=== PATIENT | female | born 1940 | race American Indian/Alaskan Native ===

== ENCOUNTER 2019-03-27 18:26 | Observation (INO) | payer MEDICARE ==
[2019-03-27] MEDS ORDERED: NACL 0.9% 1000 ML 1,000 ML IV ONE ×2 (19:02→23:18)
[2019-03-27 19:27] LABS: Basophils % (Auto) 0.5 % (0.0-1.8); Eosinophils % (Auto) 0.1 % (0.0-4.3); Hematocrit 34.3 % (30.3-42.9); Hemoglobin 11.3 gm/dl (10.1-14.3); Lymphocytes # (Auto) 0.4 K/mm3 (1.2-5.4); Mean Corpuscular HGB Conc 33 % (30-34); Mean Corpuscular Volume 86 fl (79-97); Monocytes # (Auto) 0.3 K/mm3 (0.0-0.8); Monocytes % (Auto) 4.4 % (0.0-7.3); Platelet Count 221 K/mm3 (140-440); Red Blood Count 3.98 M/mm3 (3.65-5.03); Red Cell Distribution Width 15.1 % (13.2-15.2)
[2019-03-27 20:35] LABS: BUN/Creatinine Ratio 22; Blood Urea Nitrogen 13 mg/dL (7-17); Hemolysis Index 5
[2019-03-27 20:42] LABS: Bilirubin,Urine NEG (Negative); Blood,Urine NEG (Negative); Color,Urine Yellow (Yellow); Mucus,Urine FEW /HPF; Protein,Urine <15 mg/dL mg/dL (Negative); Urobilinogen,Urine < 2.0 mg/dL (<2.0); WBC,Urine < 1.0 /HPF (0.0-6.0)
--- NOTE | 2019-03-27 23:18 | Emergency Department Report ---
ED General Adult HPI - General Chief complaint: Altered Mental Status Stated complaint: AMS Time Seen by Provider: 03/27/19 18:58 Source: EMS Mode of arrival: Stretcher Limitations: Altered Mental Status - History of Present Illness Initial comments: Patient is a 79-year-old female with past medical history dementia who turkey on her electric oven on today presumably with the door open and he heated up her apartment 2 in intensity. Patient was in her apartment for hours. Patient lives alone and cystic went to check on her this afternoon and discovered her unconscious in the department. Patient's initially was very difficult to arouse. Paramedics were able to arouse her and transported her to the emergency department. On arrival the patient is at her baseline which is poorly verbal and confused. Patient's sister states that she should not be staying at the apartment by herself anymore. Patient's sister states that she was not sweating at the time when she was found Severity scale (0 -10): 0 - Related Data Allergies Allergy/AdvReac Type Severity Reaction Status Date / Time No Known Allergies Allergy Unverified 03/27/19 18:50 ED Review of Systems ROS: Stated complaint: AMS Other details as noted in HPI Comment: All other systems reviewed and negative ED Past Medical Hx - Past Medical History Additional medical history: dementia - Social History Smoking Status: Never Smoker Substance Use Type: None ED Physical Exam - General Limitations: Altered Mental Status General appearance: alert, in no apparent distress - Head Head exam: Present: atraumatic, normocephalic - Eye Eye exam: Present: normal appearance, PERRL, EOMI - ENT ENT exam: Present: mucous membranes moist - Neck Neck exam: Present: normal inspection - Respiratory Respiratory exam: Present: normal lung sounds bilaterally. Absent: respiratory distress, wheezes, rales, rhonchi - Cardiovascular Cardiovascular Exam: Present: regular rate, normal rhythm. Absent: systolic murmur, diastolic murmur, rubs, gallop - GI/Abdominal GI/Abdominal exam: Present: soft, normal bowel sounds. Absent: distended, tenderness, guarding, rebound - Extremities Exam Extremities exam: Present: normal inspection - Back Exam Back exam: Present: normal inspection - Neurological Exam Neurological exam: Present: alert, altered. Absent: motor sensory deficit - Psychiatric Psychiatric exam: Present: normal affect, normal mood - Skin Skin exam: Present: warm, dry, intact, normal color. Absent: rash ED Course Vital Signs 03/27/19 03/27/19 03/27/19 18:41 18:57 19:16 Temperature 101.4 F H Pulse Rate 104 H 96 H Respiratory 18 18 16 Rate Blood Pressure 139/65 Blood Pressure 175/71 [Left] O2 Sat by Pulse 98 99 100 Oximetry 03/27/19 03/27/19 03/27/19 19:30 19:45 20:00 Temperature 98.6 F Pulse Rate 93 H 87 81 Respiratory 17 21 18 Rate Blood Pressure 148/59 148/61 145/59 Blood Pressure 149/64 [Left] O2 Sat by Pulse 97 98 98 Oximetry 03/27/19 03/27/19 03/27/19 20:15 20:30 20:45 Temperature Pulse Rate 82 84 78 Respiratory 17 19 11 L Rate Blood Pressure 150/61 153/70 144/64 Blood Pressure [Left] O2 Sat by Pulse 100 100 100 Oximetry 03/27/19 03/27/19 03/27/19 21:00 21:15 21:30 Temperature Pulse Rate 78 74 76 Respiratory 17 16 14 Rate Blood Pressure 143/64 141/62 154/66 Blood Pressure [Left] O2 Sat by Pulse 99 99 99 Oximetry 03/27/19 03/27/19 03/27/19 21:45 22:00 22:15 Temperature Pulse Rate 70 73 71 Respiratory 16 16 15 Rate Blood Pressure 149/63 151/69 158/73 Blood Pressure [Left] O2 Sat by Pulse 97 98 99 Oximetry ED Medical Decision Making - Lab Data Result diagrams: 03/27/19 19:12 03/27/19 19:12 Lab Results 03/27/19 03/27/19 03/27/19 Range/Units 19:12 19:12 Unknown WBC 7.5 (4.5-11.0) K/mm3 RBC 3.98 (3.65-5.03) M/mm3 Hgb 11.3 (10.1-14.3) gm/dl Hct 34.3 (30.3-42.9) % MCV 86 (79-97) fl MCH 28 (28-32) pg MCHC 33 (30-34) % RDW 15.1 (13.2-15.2) % Plt Count 221 (140-440) K/mm3 Lymph % (Auto) 5.0 L (13.4-35.0) % [place] % (Auto) 4.4 (0.0-7.3) % Eos % (Auto) 0.1 (0.0-4.3) % Baso % (Auto) 0.5 (0.0-1.8) % Lymph # 0.4 L (1.2-5.4) K/mm3 [place] # 0.3 (0.0-0.8) K/mm3 Eos # 0.0 (0.0-0.4) K/mm3 Baso # 0.0 (0.0-0.1) K/mm3 Seg Neutrophils % 90.0 H (40.0-70.0) % Seg Neutrophils # 6.8 (1.8-7.7) K/mm3 Sodium 142 (137-145) mmol/L Potassium 3.2 L (3.6-5.0) mmol/L Chloride 105.6 (98-107) mmol/L Carbon Dioxide 24 (22-30) mmol/L Anion Gap 16 mmol/L BUN 13 (7-17) mg/dL Creatinine 0.6 L (0.7-1.2) mg/dL Estimated GFR > 60 ml/min BUN/Creatinine Ratio 22 % Glucose 125 H (65-100) mg/dL Calcium 8.0 L (8.4-10.2) mg/dL Total Creatine Kinase 127 (30-135) units/L Urine Color Yellow (Yellow) Urine Turbidity Clear (Clear) Urine pH 6.0 (5.0-7.0) Ur Specific [place] 1.012 (1.003-1.030) Urine Protein <15 mg/dl (Negative) mg/dL Urine Glucose (UA) Neg (Negative) mg/dL Urine Ketones Neg (Negative) mg/dL Urine Blood Neg (Negative) Urine Nitrite Neg (Negative) Urine Bilirubin Neg (Negative) Urine Urobilinogen < 2.0 (<2.0) mg/dL Ur Leukocyte Esterase Neg (Negative) Urine WBC (Auto) < 1.0 (0.0-6.0) /HPF Urine RBC (Auto) 2.0 (0.0-6.0) /HPF U Epithel Cells (Auto) 2.0 (0-13.0) /HPF Urine Mucus Few /HPF - Medical Decision Making Patient presumed to have heat stroke. Also patient may have had some worsening of her dementia which led to her staying in the apartment while he was heating up. Patient's laboratory studies are relatively within normal limits however to feel as though it's unsafe that the patient be sent back home. Patient will be admitted to receive further IV fluids and monitor her mental status. Critical care attestation.: If time is entered above; I have spent that time in minutes in the direct care of this critically ill patient, excluding procedure time. ED Disposition Clinical Impression: Heat stroke, Acute encephalopathy Disposition: DC-09 OP ADMIT IP TO THIS HOSP Is pt being admited?: Yes Does the pt Need Aspirin: No Condition: Stable Time of Disposition: 23:20
[2019-03-27] MEDS ORDERED: NACL 0.9% 1000 ML 1,000 ML IV SCH (23:45)
--- NOTE | 2019-03-28 00:15 | Cat Scan Report ---
CT HEAD WITHOUT CONTRAST INDICATION / CLINICAL INFORMATION: altered mental status. TECHNIQUE: All CT scans at this location are performed using CT dose reduction for ALARA by means of automated e xposure control. COMPARISON: None available. FINDINGS: HEMORRHAGE: None. EXTRA-AXIAL SPACES: Normal in size and morphology for the patient's age. VENTRICULAR SYSTEM: Normal in size and morphology for the patient's age. CEREBRAL PARENCHYMA: Mild diffuse white matter hypodensities likely related to microangiopathy. MIDLINE SHIFT OR HERNIATION: None. CEREBELLUM / BRAINSTEM: No significant abnormality. ORBITS: Normal as visualized. SOFT TISSUES of HEAD: No significant abnormality. CALVARIUM: No significant abnormality. PARANASAL SINUSES / MASTOID AIR CELLS: Normal as visualized. ADDITIONAL FINDINGS: None. IMPRESSION: 1. No acute intracranial abnormality. 2. Chronic and age-related findings. Signer Name: Leigh Giron MD Signed: 03/28/2019 12:11 AM Workstation Name: [id number]
--- NOTE | 2019-03-28 01:56 | History and Physical Report ---
History of Present Illness Date of examination: 03/28/19 Date of admission: 03/27/19 23:26 Chief complaint: AMS History of present illness: Patient is a 79-year-old female with past medical history of dementia who presented to the ED via EMS on account of altered mental status. Of note, the patient was unable to provide history due to baseline dementia. Per chart, it was reported that the pt was cooking turkey on her electric oven presumably with the door open, which heated up her apartment. She lives alone and when her sister went to check on her, she discovered her unconscious in the apartment. The patient was very difficult to arouse. However, paramedics were able to arouse her and transported her to the emergency department. On arrival to the ED, the patient was at her baseline mental status. The patient's sister voiced concern about the pt's ability to live alone Past History Past Medical History: other (dementia) Past Surgical History: Other (unable to obtain due to baseline dementia) Social history: no significant social history (per chart) Family history: other (unable to obtain due to baseline dementia) Medications and Allergies Allergies Allergy/AdvReac Type Severity Reaction Status Date / Time No Known Allergies Allergy Verified 03/27/19 23:30 Active Meds: Active Medications Sodium Chloride (Nacl 0.9% 1000 Ml) 1,000 mls @ 100 mls/hr IV ONCE ONE Stop: 03/28/19 09:17 Last Admin: 03/27/19 23:45 Dose: 100 mls/hr Documented by: Sodium Chloride (Nacl 0.9% 1000 Ml) 1,000 mls @ 100 mls/hr IV DIRECT TYRON Review of Systems ROS unobtainable: due to mental status (due to baseline dementia) Exam - Constitutional Vitals: Temp Pulse Resp BP Pulse Ox 97.9 F 71 18 179/91 99 03/28/19 01:03 03/28/19 01:03 03/28/19 01:03 03/28/19 01:03 03/28/19 01:03 General appearance: Present: no acute distress - EENT Eyes: Present: PERRL, EOM intact ENT: hearing intact, clear oral mucosa - Neck Neck: Present: supple, normal ROM - Respiratory Respiratory effort: normal Respiratory: bilateral: CTA - Cardiovascular Rhythm: regular Heart Sounds: Present: S1 & S2. Absent: rub, click - Extremities Extremities: pulses symmetrical, No edema Peripheral Pulses: within normal limits - Abdominal General gastrointestinal: Present: soft, non-tender, non-distended, normal bowel sounds Female genitourinary: Present: deferred - Rectal Rectal Exam: deferred - Integumentary Integumentary: Present: clear, warm, dry - Musculoskeletal Musculoskeletal: generalized weakness - Psychiatric Psychiatric: cooperative - Neurologic Neurologic: moves all extremities Results - Labs CBC & Chem 7: 03/27/19 19:12 03/27/19 19:12 Labs: Laboratory Last Values WBC 7.5 K/mm3 (4.5-11.0) 03/27/19 19:12 RBC 3.98 M/mm3 (3.65-5.03) 03/27/19 19:12 Hgb 11.3 gm/dl (10.1-14.3) 03/27/19 19:12 Hct 34.3 % (30.3-42.9) 03/27/19 19:12 MCV 86 fl (79-97) 03/27/19 19:12 MCH 28 pg (28-32) 03/27/19 19:12 MCHC 33 % (30-34) 03/27/19 19:12 RDW 15.1 % (13.2-15.2) 03/27/19 19:12 Plt Count 221 K/mm3 (140-440) 03/27/19 19:12 Lymph % (Auto) 5.0 % (13.4-35.0) L 03/27/19 19:12 [place] % (Auto) 4.4 % (0.0-7.3) 03/27/19 19:12 Eos % (Auto) 0.1 % (0.0-4.3) 03/27/19 19:12 Baso % (Auto) 0.5 % (0.0-1.8) 03/27/19 19:12 Lymph # 0.4 K/mm3 (1.2-5.4) L 03/27/19 19:12 [place] # 0.3 K/mm3 (0.0-0.8) 03/27/19 19:12 Eos # 0.0 K/mm3 (0.0-0.4) 03/27/19 19:12 Baso # 0.0 K/mm3 (0.0-0.1) 03/27/19 19:12 Seg Neutrophils % 90.0 % (40.0-70.0) H 03/27/19 19:12 Seg Neutrophils # 6.8 K/mm3 (1.8-7.7) 03/27/19 19:12 Sodium 142 mmol/L (137-145) 03/27/19 19:12 Potassium 3.2 mmol/L (3.6-5.0) L 03/27/19 19:12 Chloride 105.6 mmol/L (98-107) 03/27/19 19:12 Carbon Dioxide 24 mmol/L (22-30) 03/27/19 19:12 Anion Gap 16 mmol/L 03/27/19 19:12 BUN 13 mg/dL (7-17) 03/27/19 19:12 Creatinine 0.6 mg/dL (0.7-1.2) L 03/27/19 19:12 Estimated GFR > 60 ml/min 03/27/19 19:12 BUN/Creatinine Ratio 22 % 03/27/19 19:12 Glucose 125 mg/dL (65-100) H 03/27/19 19:12 Calcium 8.0 mg/dL (8.4-10.2) L 03/27/19 19:12 Total Creatine Kinase 127 units/L (30-135) 03/27/19 19:12 Urine Color Yellow (Yellow) 03/27/19 Unknown Urine Turbidity Clear (Clear) 03/27/19 Unknown Urine pH 6.0 (5.0-7.0) 03/27/19 Unknown Ur Specific [place] 1.012 (1.003-1.030) 03/27/19 Unknown Urine Protein <15 mg/dl mg/dL (Negative) 03/27/19 Unknown Urine Glucose (UA) Neg mg/dL (Negative) 03/27/19 Unknown Urine Ketones Neg mg/dL (Negative) 03/27/19 Unknown Urine Blood Neg (Negative) 03/27/19 Unknown Urine Nitrite Neg (Negative) 03/27/19 Unknown Urine Bilirubin Neg (Negative) 03/27/19 Unknown Urine Urobilinogen < 2.0 mg/dL (<2.0) 03/27/19 Unknown Ur Leukocyte Esterase Neg (Negative) 03/27/19 Unknown Urine WBC (Auto) < 1.0 /HPF (0.0-6.0) 03/27/19 Unknown Urine RBC (Auto) 2.0 /HPF (0.0-6.0) 03/27/19 Unknown U Epithel Cells (Auto) 2.0 /HPF (0-13.0) 03/27/19 Unknown Urine Mucus Few /HPF 03/27/19 Unknown Assessment and Plan Assessment and plan: Syncope and collapse -Likely due to hyperthermia -Head CT scan neg for acute findings -Stable SIRS evidenced by T>100.9 and HR>90 -Likely due to noninfectious cause (hyperthermia) -Urinalysis negative -Improved s/p IVF boluses in the ED, will monitor Hypokalemia -On repletion, will monitor level -will check Mg level Elevated BP -? history of HTN -On PRN hydralazine Generalized weakness -PT/OT consulted Dementia without behavioral disturbances -Continue supportive care DVT prophylaxis with heparin Disposition: Patient will be admitted to observation status. manager medical writing consulted for possible placement.
[2019-03-28] MEDS: K-DUR PO SCH ×2 (03:57→10:01)
[2019-03-28] MEDS: APRESOLINE IV PRN ×2 (03:57→18:13)
--- NOTE | 2019-03-28 08:14 | Progress Note ---
Assessment and Plan Assessment and plan: Patient is a 79-year-old female with past medical history of dementia who presented to the ED via EMS on account of altered mental status. Of note, the patient was unable to provide history due to baseline dementia. Per chart, it was reported that the pt was cooking turkey on her electric oven presumably with the door open, which heated up her apartment. She lives alone and when her sister went to check on her, she discovered her unconscious in the apartment. The patient was very difficult to arouse. However, paramedics were able to arouse her and transported her to the emergency department. On arrival to the ED, the patient was at her baseline mental status. The patient's sister voiced concern about the pt's ability to live alone Syncope and collapse -Likely due to hyperthermia -Head CT scan neg for acute findings -Stable -Evaluate for possible elevated carboxyhemoglobin. SIRS evidenced by T>100.9 and HR>90 -Likely due to noninfectious cause (hyperthermia) -Urinalysis negative -Improved s/p IVF boluses in the ED, will monitor Hypokalemia -On repletion, will monitor level -will check Mg level Hypetension urgency -pt with persistently elevated BP -On PRN hydralazine -Obtain home medication -Start on Clonidin Patch as patient is refusing PO intake Generalized weakness -PT/OT consulted Dementia without behavioral disturbances -Continue supportive care DVT prophylaxis with heparin Disposition: Patient will be admitted to observation status. manager of patient consulted for possible placement. History Interval history: Patient seen and examined, resting comfortably although very confused at this time, Refusing meds Hospitalist Physical - Physical exam Narrative exam: General appearance: Present: no acute distress - EENT Eyes: Present: PERRL, EOM intact ENT: hearing intact, clear oral mucosa - Neck Neck: Present: supple, normal ROM - Respiratory Respiratory effort: normal Respiratory: bilateral: CTA - Cardiovascular Rhythm: regular Heart Sounds: Present: S1 & S2. Absent: rub, click - Extremities Extremities: pulses symmetrical, No edema Peripheral Pulses: within normal limits - Abdominal General gastrointestinal: Present: soft, non-tender, non-distended, normal bowel sounds Female genitourinary: Present: deferred - Rectal Rectal Exam: deferred - Integumentary Integumentary: Present: clear, warm, dry - Musculoskeletal Musculoskeletal: generalized weakness - Psychiatric Psychiatric: cooperative - Neurologic Neurologic: moves all extremities - Constitutional Vitals: Temp Pulse Resp BP Pulse Ox 97.9 F 71 18 179/91 99 03/28/19 01:03 03/28/19 03:57 03/28/19 01:03 03/28/19 03:57 03/28/19 01:03 General appearance: Present: no acute distress Results - Labs CBC & Chem 7: 03/27/19 19:12 03/27/19 19:12 Labs: Laboratory Last Values WBC 7.5 K/mm3 (4.5-11.0) 03/27/19 19:12 RBC 3.98 M/mm3 (3.65-5.03) 03/27/19 19:12 Hgb 11.3 gm/dl (10.1-14.3) 03/27/19 19:12 Hct 34.3 % (30.3-42.9) 03/27/19 19:12 MCV 86 fl (79-97) 03/27/19 19:12 MCH 28 pg (28-32) 03/27/19 19:12 MCHC 33 % (30-34) 03/27/19 19:12 RDW 15.1 % (13.2-15.2) 03/27/19 19:12 Plt Count 221 K/mm3 (140-440) 03/27/19 19:12 Lymph % (Auto) 5.0 % (13.4-35.0) L 03/27/19 19:12 [place] % (Auto) 4.4 % (0.0-7.3) 03/27/19 19:12 Eos % (Auto) 0.1 % (0.0-4.3) 03/27/19 19:12 Baso % (Auto) 0.5 % (0.0-1.8) 03/27/19 19:12 Lymph # 0.4 K/mm3 (1.2-5.4) L 03/27/19 19:12 [place] # 0.3 K/mm3 (0.0-0.8) 03/27/19 19:12 Eos # 0.0 K/mm3 (0.0-0.4) 03/27/19 19:12 Baso # 0.0 K/mm3 (0.0-0.1) 03/27/19 19:12 Seg Neutrophils % 90.0 % (40.0-70.0) H 03/27/19 19:12 Seg Neutrophils # 6.8 K/mm3 (1.8-7.7) 03/27/19 19:12 Sodium 142 mmol/L (137-145) 03/27/19 19:12 Potassium 3.2 mmol/L (3.6-5.0) L 03/27/19 19:12 Chloride 105.6 mmol/L (98-107) 03/27/19 19:12 Carbon Dioxide 24 mmol/L (22-30) 03/27/19 19:12 Anion Gap 16 mmol/L 03/27/19 19:12 BUN 13 mg/dL (7-17) 03/27/19 19:12 Creatinine 0.6 mg/dL (0.7-1.2) L 03/27/19 19:12 Estimated GFR > 60 ml/min 03/27/19 19:12 BUN/Creatinine Ratio 22 % 03/27/19 19:12 Glucose 125 mg/dL (65-100) H 03/27/19 19:12 Calcium 8.0 mg/dL (8.4-10.2) L 03/27/19 19:12 Magnesium 1.80 mg/dL (1.7-2.3) 03/28/19 03:12 Total Creatine Kinase 127 units/L (30-135) 03/27/19 19:12 Urine Color Yellow (Yellow) 03/27/19 Unknown Urine Turbidity Clear (Clear) 03/27/19 Unknown Urine pH 6.0 (5.0-7.0) 03/27/19 Unknown Ur Specific [place] 1.012 (1.003-1.030) 03/27/19 Unknown Urine Protein <15 mg/dl mg/dL (Negative) 03/27/19 Unknown Urine Glucose (UA) Neg mg/dL (Negative) 03/27/19 Unknown Urine Ketones Neg mg/dL (Negative) 03/27/19 Unknown Urine Blood Neg (Negative) 03/27/19 Unknown Urine Nitrite Neg (Negative) 03/27/19 Unknown Urine Bilirubin Neg (Negative) 03/27/19 Unknown Urine Urobilinogen < 2.0 mg/dL (<2.0) 03/27/19 Unknown Ur Leukocyte Esterase Neg (Negative) 03/27/19 Unknown Urine WBC (Auto) < 1.0 /HPF (0.0-6.0) 03/27/19 Unknown Urine RBC (Auto) 2.0 /HPF (0.0-6.0) 03/27/19 Unknown U Epithel Cells (Auto) 2.0 /HPF (0-13.0) 03/27/19 Unknown Urine Mucus Few /HPF 03/27/19 Unknown Active Medications - Current Medications Current Medications: Generic Name Dose Route Start Last Admin Trade Name Freq PRN Reason Stop Dose Admin Heparin Sodium (Porcine) 5,000 unit 03/28/19 10:00 Heparin SUB-Q Q12HR TYRON Hydralazine HCl 10 mg 03/28/19 02:06 03/28/19 03:57 Apresoline IV 10 mg Q4HR PRN Administration Blood Pressure Sodium Chloride 1,000 mls @ 100 mls/hr 03/27/19 23:18 03/27/19 23:45 Nacl 0.9% 1000 Ml IV 03/28/19 09:17 100 mls/hr ONCE ONE Administration Sodium Chloride 1,000 mls @ 100 mls/hr 03/27/19 23:45 Nacl 0.9% 1000 Ml IV DIRECT TYRON Potassium Chloride 40 meq 03/28/19 02:02 03/28/19 03:57 K-Dur PO 03/28/19 10:01 40 meq BID TYRON Administration
[2019-03-28] MEDS: HEPARIN SUB-Q SCH ×2 (10:02→21:33)
[2019-03-28] MEDS ORDERED: CATAPRES-TTS PATCH TD SCH (14:00)
[2019-03-28] MEDS: ARICEPT PO SCH (14:12)
[2019-03-28] MEDS: COZAAR PO SCH (14:12)
[2019-03-28] MEDS ORDERED: XANAX PO PRN (22:43)
[2019-03-28] MEDS ORDERED: XANAX PO ONE (22:45)
[2019-03-29] MEDS ORDERED: ATIVAN IM ONE (00:04)
--- NOTE | 2019-03-29 00:05 | Event Note ---
Patient very disruptive, pulled out her IV several times, one wandering into other patient's room xanax ordered, she refused to take it Will give a dose of ativan
[2019-03-29] MEDS: COZAAR PO SCH (09:22)
[2019-03-29] MEDS: ARICEPT PO SCH (09:23)
[2019-03-29] MEDS: HEPARIN SUB-Q SCH (09:23)
[2019-03-29 10:34] LABS: BUN/Creatinine Ratio 20; Blood Urea Nitrogen 10 mg/dL (7-17); Calcium 9.4 mg/dL (8.4-10.2); Hemolysis Index 12
--- NOTE | 2019-03-29 11:57 | Discharge Summary ---
Providers - Providers Date of Admission: 03/27/19 23:26 Attending physician: CHRIS MAYNARD MD 03/28/19 02:18 Physical Therapy Evaluation and Treat [CONS] Routine Comment: Reason For Exam: generalized weakness 03/28/19 02:19 Consult to Case Management [CONS] Routine Services Needed at Discharge: Medical Insurance Clerk Notified:: ARCHIE Additional Physician Instructions: for possible placement Occupational Therapy Evaluate and Treat [CONS] Routine Comment: Reason For Exam: generalized weakness Primary care physician: LOT BOSS Hospitalization Reason for admission: syncope Condition: Stable Hospital course: Patient is a 79-year-old female with past medical history of dementia who presented to the ED via EMS on account of altered mental status. Of note, the patient was unable to provide history due to baseline dementia. Per chart, it was reported that the pt was cooking turkey on her electric oven presumably with the door open, which heated up her apartment. She lives alone and when her sister went to check on her, she discovered her unconscious in the apartment. The patient was very difficult to arouse. However, paramedics were able to arouse her and transported her to the emergency department. On arrival to the ED, the patient was at her baseline mental status. The patient's sister voiced concern about the pt's ability to live alone Syncope -Likely due to hyperthermia -Head CT scan neg for acute findings -Stable -Patient refused carboxyhemoglobin. SIRS evidenced by T>100.9 and HR>90 -Likely due to noninfectious cause (hyperthermia) -Urinalysis negative -Improved s/p IVF boluses in the ED, will monitor Hypokalemia -Replaced Hypetension urgency -STABLE Generalized weakness -PT/OT consulted Dementia without behavioral disturbances WITH SUNDOWNING. -Continue supportive care STABLE FOR DISCHARGE, FAMILY AWARE THAT PATIENT WILL NEED CARE AT HOME. Disposition: DC/[place]-06 HOME UNDER HOME [facility] Time spent for discharge: 35 MINS Core Measure Documentation - Palliative Care Palliative Care/ Comfort Measures: Not Applicable - Core Measures Any of the following diagnoses?: none Exam - Physical Exam Narrative exam: General appearance: Present: no acute distress - EENT Eyes: Present: PERRL, EOM intact ENT: hearing intact, clear oral mucosa - Neck Neck: Present: supple, normal ROM - Respiratory Respiratory effort: normal Respiratory: bilateral: CTA - Cardiovascular Rhythm: regular Heart Sounds: Present: S1 & S2. Absent: rub, click - Extremities Extremities: pulses symmetrical, No edema Peripheral Pulses: within normal limits - Abdominal General gastrointestinal: Present: soft, non-tender, non-distended, normal bowel sounds Female genitourinary: Present: deferred - Rectal Rectal Exam: deferred - Integumentary Integumentary: Present: clear, warm, dry - Musculoskeletal Musculoskeletal: generalized weakness - Psychiatric Psychiatric: cooperative - Neurologic Neurologic: moves all extremities - Constitutional Vitals: Temp Pulse Resp BP Pulse Ox 97.5 F L 94 H 20 150/63 98 03/29/19 07:28 03/29/19 09:22 03/29/19 07:28 03/29/19 09:22 03/29/19 02:54 Plan Activity: advance as tolerated, fall precautions Diet: low fat Special Instructions: record daily BP diary Follow up with: PRIMARY CARE, [Primary Care Provider] - 3-5 Days Prescriptions: cloNIDine-TTS PATCH [Catapres-Tts 0.2mg Patch] 0.2 mg TD Tu #7 patch
--- NOTE | 2019-03-29 11:58 | Progress Note ---
Assessment and Plan Assessment and plan: Patient is a 79-year-old female with past medical history of dementia who presented to the ED via EMS on account of altered mental status. Of note, the patient was unable to provide history due to baseline dementia. Per chart, it was reported that the pt was cooking turkey on her electric oven presumably with the door open, which heated up her apartment. She lives alone and when her sister went to check on her, she discovered her unconscious in the apartment. The patient was very difficult to arouse. However, paramedics were able to arouse her and transported her to the emergency department. On arrival to the ED, the patient was at her baseline mental status. The patient's sister voiced concern about the pt's ability to live alone Syncope -Likely due to hyperthermia -Head CT scan neg for acute findings -Stable -Patient refused carboxyhemoglobin. SIRS evidenced by T>100.9 and HR>90 -Likely due to noninfectious cause (hyperthermia) -Urinalysis negative -Improved s/p IVF boluses in the ED, will monitor Hypokalemia -Replaced Hypetension urgency -STABLE Generalized weakness -PT/OT consulted Dementia without behavioral disturbances WITH SUNDOWNING. -Continue supportive care STABLE FOR DISCHARGE, FAMILY AWARE THAT PATIENT WILL NEED CARE AT HOME. History Interval history: Patient seen and examined, resting comfortably confused intermittently but back to baseline. No family present Hospitalist Physical - Physical exam Narrative exam: General appearance: Present: no acute distress - EENT Eyes: Present: PERRL, EOM intact ENT: hearing intact, clear oral mucosa - Neck Neck: Present: supple, normal ROM - Respiratory Respiratory effort: normal Respiratory: bilateral: CTA - Cardiovascular Rhythm: regular Heart Sounds: Present: S1 & S2. Absent: rub, click - Extremities Extremities: pulses symmetrical, No edema Peripheral Pulses: within normal limits - Abdominal General gastrointestinal: Present: soft, non-tender, non-distended, normal bowel sounds Female genitourinary: Present: deferred - Rectal Rectal Exam: deferred - Integumentary Integumentary: Present: clear, warm, dry - Musculoskeletal Musculoskeletal: generalized weakness - Psychiatric Psychiatric: cooperative - Neurologic Neurologic: moves all extremities - Constitutional Vitals: Temp Pulse Resp BP Pulse Ox 97.5 F L 94 H 20 150/63 98 03/29/19 07:28 03/29/19 09:22 03/29/19 07:28 03/29/19 09:22 03/29/19 02:54 General appearance: Present: no acute distress Results - Labs CBC & Chem 7: 03/27/19 19:12 03/29/19 10:03 Labs: Laboratory Last Values WBC 7.5 K/mm3 (4.5-11.0) 03/27/19 19:12 RBC 3.98 M/mm3 (3.65-5.03) 03/27/19 19:12 Hgb 11.3 gm/dl (10.1-14.3) 03/27/19 19:12 Hct 34.3 % (30.3-42.9) 03/27/19 19:12 MCV 86 fl (79-97) 03/27/19 19:12 MCH 28 pg (28-32) 03/27/19 19:12 MCHC 33 % (30-34) 03/27/19 19:12 RDW 15.1 % (13.2-15.2) 03/27/19 19:12 Plt Count 221 K/mm3 (140-440) 03/27/19 19:12 Lymph % (Auto) 5.0 % (13.4-35.0) L 03/27/19 19:12 Butts % (Auto) 4.4 % (0.0-7.3) 03/27/19 19:12 Eos % (Auto) 0.1 % (0.0-4.3) 03/27/19 19:12 Baso % (Auto) 0.5 % (0.0-1.8) 03/27/19 19:12 Lymph # 0.4 K/mm3 (1.2-5.4) L 03/27/19 19:12 Butts # 0.3 K/mm3 (0.0-0.8) 03/27/19 19:12 Eos # 0.0 K/mm3 (0.0-0.4) 03/27/19 19:12 Baso # 0.0 K/mm3 (0.0-0.1) 03/27/19 19:12 Seg Neutrophils % 90.0 % (40.0-70.0) H 03/27/19 19:12 Seg Neutrophils # 6.8 K/mm3 (1.8-7.7) 09/30/19 19:12 Sodium 143 mmol/L (137-145) 03/29/19 10:03 Potassium 3.7 mmol/L (3.6-5.0) 03/29/19 10:03 Chloride 101.9 mmol/L (98-107) 03/29/19 10:03 Carbon Dioxide 27 mmol/L (22-30) 03/29/19 10:03 Anion Gap 18 mmol/L 03/29/19 10:03 BUN 10 mg/dL (7-17) 03/29/19 10:03 Creatinine 0.5 mg/dL (0.7-1.2) L 03/29/19 10:03 Estimated GFR > 60 ml/min 03/29/19 10:03 BUN/Creatinine Ratio 20 % 03/29/19 10:03 Glucose 57 mg/dL (65-100) L 03/29/19 10:03 Calcium 9.4 mg/dL (8.4-10.2) D 03/29/19 10:03 Magnesium 1.80 mg/dL (1.7-2.3) 03/28/19 03:12 Total Creatine Kinase 127 units/L (30-135) 03/27/19 19:12 Urine Color Yellow (Yellow) 03/27/19 Unknown Urine Turbidity Clear (Clear) 03/27/19 Unknown Urine pH 6.0 (5.0-7.0) 03/27/19 Unknown Ur Specific Rector 1.012 (1.003-1.030) 03/27/19 Unknown Urine Protein <15 mg/dl mg/dL (Negative) 03/27/19 Unknown Urine Glucose (UA) Neg mg/dL (Negative) 03/27/19 Unknown Urine Ketones Neg mg/dL (Negative) 03/27/19 Unknown Urine Blood Neg (Negative) 03/27/19 Unknown Urine Nitrite Neg (Negative) 03/27/19 Unknown Urine Bilirubin Neg (Negative) 03/27/19 Unknown Urine Urobilinogen < 2.0 mg/dL (<2.0) 03/27/19 Unknown Ur Leukocyte Esterase Neg (Negative) 03/27/19 Unknown Urine WBC (Auto) < 1.0 /HPF (0.0-6.0) 03/27/19 Unknown Urine RBC (Auto) 2.0 /HPF (0.0-6.0) 03/27/19 Unknown U Epithel Cells (Auto) 2.0 /HPF (0-13.0) 03/27/19 Unknown Urine Mucus Few /HPF 03/27/19 Unknown Active Medications - Current Medications Current Medications: Generic Name Dose Route Start Last Admin Trade Name Freq PRN Reason Stop Dose Admin Clonidine HCl 0.2 mg 03/28/19 14:00 03/28/19 14:08 Catapres-Tts Patch TD 0.2 mg Tu TYRON Administration Donepezil HCl 5 mg 03/28/19 14:00 03/29/19 09:23 Aricept PO 5 mg DAILY TYRON Administration Heparin Sodium (Porcine) 5,000 unit 03/28/19 10:00 03/29/19 09:23 Heparin SUB-Q 5,000 unit Q12HR TYRON Administration Hydralazine HCl 10 mg 03/28/19 02:06 03/28/19 18:13 Apresoline IV 10 mg Q4HR PRN Administration Blood Pressure Sodium Chloride 1,000 mls @ 100 mls/hr 03/27/19 23:45 Nacl 0.9% 1000 Ml IV DIRECT TYRON Losartan Potassium 25 mg 03/28/19 14:00 03/29/19 09:22 Cozaar PO 25 mg QDAY TYRON Administration Nutrition/Malnutrition Assess - Dietary Evaluation Nutrition/Malnutrition Findings: Nutrition Notes Start: 03/28/19 11:17 Freq: Status: Active Protocol: Document 03/28/19 11:17 RS (Rec: 03/28/19 12:04 RS [id number]) Co-Sign 03/28/19 11:17 NHALL Nutrition Notes Need for Assessment generated from: jacquard fixer,MST Initial or Follow up Assessment Current Diagnosis Hypertension Other Pertinent Diagnosis Dementia, Hypoalkemia, SIRS, hyperthermia Current Diet Renal Diet Labs/Tests K: 3.2 Cr: 0.6 Pertinent Medications reviewed Height 5 ft 1 in Weight 45.359 kg [place] Body Weight (kg) 47.72 BMI 18.8 Intake Prior to Admission Poor Weight change and time frame Weight recorded by [facility] Weight Status Underweight Subjective/Other Information Pt consulted for MST and skin risk assesment (Olu score of 18). Pt ambulatory but exhibits signs of AMS so accurate intake PROJECT SURVEYOR was not able to be recorded. Noted temporal wasting. Nurse reports pt not eating any of her breakfast. Pt offered supplement and denied, but nurse requested ONS. Percent of energy/protein needs met: 0%/0% Burn Absent Trauma Absent Food Allergy No Current % PO Negligible Minimum of two criteria Yes Body Fat Depletion Moderate depletion (severe) Muscle Mass Moderate Depletion (severe) Protein-Calorie Malnutrition Severe #1 Nutrition Diagnosis Malnutrition Etiology dementia As Evidenced by Signs and Symptoms temporal wasting, subcutaneous fat loss, poor appetite, and consuming 0% of breakfast Is patient on ventilator? No Is Patient Ambulatory and/or Out of Bed Yes REE-([facility]-ambulatory/OOB) [ 1132.261 NUTR.[id number]] Kcal/Kg value to use for calculation 32 Approximate Energy Requirements Using 1451 kcal/Kg Calculation Used for Recommendations Kcal/kg Additional Notes Protein needs (1.2-1.5g/day): 55-68g/day Fluid needs: 1mL/kcal Nutrition Intervention Change Diet Order: Continue diet Add Supplement/Snack (indicate name/kcal Ensure Enlive Vanilla BID /protein ) Provides kCal: 700 Provides Protein (gm) 40 Goal #1 Pt will consume 75% of kcal/ protein needs via PO/ONS intake Goal #2 Wt maintenance and/or gain Anticipated Discharge Needs: Continue ONS 1-2 times daily Follow-Up By: 03/30/19 Additional Comments F/U for PO intake and ONS tolerance
[2019-03-29 15:09] VITALS: BP 173/76
== END 2019-03-29 15:15 | disposition home health service (06) ==
LOC: ED 18:26 → 2B-ACE 23:26
PROVIDERS: ADMIT Internal Medicine; ATTEND Internal Medicine
DX: R55 Syncope and collapse (principal); R65.10 Systemic inflammatory response syndrome (SIRS) of non-infectious origin without acute organ dysfunction; E87.6 Hypokalemia; I10 Essential (primary) hypertension; G93.40 Encephalopathy, unspecified; R53.1 Weakness; F03.90 Unspecified dementia, unspecified severity, without behavioral disturbance, psychotic disturbance, mood disturbance, and anxiety
CPT/HCPCS: 36415; 70450; 80048; 81001; 82550; 83735; 85025; 96361; 96372; 96374; 96376; 97162; 99284; G0378; J0360; J1644; J2060; J7030

== ENCOUNTER 2019-05-18 16:50 | Inpatient (IN) | payer MEDICARE ==
[2019-05-18] MEDS ORDERED: hydrALAZINE 20 MG/1 ML INJ IV ONE (17:45)
[2019-05-18 18:03] LABS: Basophils # (Auto) 0.1 K/mm3 (0.0-0.1); Eosinophils # (Auto) 0.1 K/mm3 (0.0-0.4); Eosinophils % (Auto) 1.6 % (0.0-4.3); Hematocrit 35.1 % (30.3-42.9); Hemoglobin 11.5 gm/dl (10.1-14.3); Lymphocytes # (Auto) 0.9 K/mm3 (1.2-5.4); Lymphocytes % (Auto) 10.4 % (13.4-35.0); Mean Corpuscular HGB Conc 33 % (30-34); Mean Corpuscular Volume 86 fl (79-97); Monocytes # (Auto) 0.8 K/mm3 (0.0-0.8); Platelet Count 420 K/mm3 (140-440); Red Blood Count 4.06 M/mm3 (3.65-5.03); Red Cell Distribution Width 13.9 % (13.2-15.2)
[2019-05-18 18:14] LABS: BUN/Creatinine Ratio 38; Blood Urea Nitrogen 23 mg/dL (7-17); Calcium 9.3 mg/dL (8.4-10.2); Hemolysis Index 5
[2019-05-18] MEDS ORDERED: POTASSIUM CHLORIDE ER 10 MEQ TAB PO ONE (18:14)
--- NOTE | 2019-05-18 19:10 | Emergency Department Report ---
HPI <NISHANT DAUGHERTY - Last Filed: 05/19/19 03:03> - HPI HPI: 79-year-old -[place] female presents to the emergency department via EMS from [place] with the complaint of a possible infection to the right foot and one of the toes from the right foot. Later on in her ED course, the patient's the DPOA and supervisor garage is at bedside and gives more information. Apparently the patient has been having some right foot pain and swelling over the past week or so. She was brought to see her primary care physician, Dr. Mario Talamantes, who referred her "across the street" to have some lab work and imaging done. She had some blood work, a right foot x-ray, and a venous Doppler ultrasound that apparently all came back negative. The patient herself is a very poor historian she has a history of dementia. She also has a history of hypertension. The patient presents with a dark and/or black appearing right fourth toe. <TERRY RUTHERFORD - Last Filed: 05/20/19 18:30> - General Time Seen by Provider: 05/18/19 17:37 ED Past Medical Hx <NISHANT DAUGHERTY - Last Filed: 05/19/19 03:03> - Past Medical History Additional medical history: dementia - Social History Smoking Status: Never Smoker Substance Use Type: None <TERRY RUTHERFORD - Last Filed: 05/20/19 18:30> - Medications Home Medications: Home Medications Medication Instructions Recorded Confirmed Last Taken Type Donepezil [Aricept] 5 mg PO DAILY 03/28/19 05/19/19 Unknown History Losartan [Cozaar] 25 mg PO QDAY 03/28/19 05/19/19 Unknown History cloNIDine-TTS PATCH [Catapres-Tts 0.2 mg TD Tu #7 patch 03/29/19 05/19/19 Unknown Rx 0.2mg Patch] ED Review of Systems ROS: Stated complaint: INFECTED TOE Other details as noted in HPI <NISHANT DAUGHERTY - Last Filed: 05/19/19 03:03> ROS: Stated complaint: INFECTED TOE Other details as noted in HPI Comment: Unobtainable due to pts medical conditions Musculoskeletal: arthralgia (right foot) Skin: change in color (right fourth toe) <SHEAR,TERRY S - Last Filed: 05/20/19 18:30> Physical Exam - Physical Exam Vital Signs: Vital Signs 05/18/19 05/18/19 05/18/19 17:01 17:15 17:45 Temperature 98.6 F Pulse Rate 97 H 88 Respiratory 18 18 18 Rate Blood Pressure 176/83 Blood Pressure 183/78 [Left] O2 Sat by Pulse 98 100 97 Oximetry 05/18/19 05/19/19 05/19/19 22:20 01:14 02:00 Temperature Pulse Rate 75 82 75 Respiratory 18 12 11 L Rate Blood Pressure 159/79 163/77 Blood Pressure 138/75 [Left] O2 Sat by Pulse 97 100 98 Oximetry <NISHANT DAUGHERTY Rodrick - Last Filed: 05/19/19 03:03> - Physical Exam Vital Signs: Vital Signs 05/18/19 17:01 Temperature 98.6 F Pulse Rate 97 H Respiratory 18 Rate Blood Pressure 176/83 O2 Sat by Pulse 98 Oximetry Physical Exam: GENERAL: The patient is well-developed well-nourished. HENT: Normocephalic. Atraumatic. Patient has moist mucous membranes. EYES: Extraocular motions are intact. NECK: Supple. Trachea is midline. CHEST/LUNGS: Clear to auscultation. There is no respiratory distress noted. HEART/CARDIOVASCULAR: Regular. There is no tachycardia. There is no murmur. ABDOMEN: Abdomen is soft, nontender. Patient has normal bowel sounds. There is no abdominal distention. SKIN: There is darkening of the fourth toe right foot. There is mild pitting edema of the right foot and ankle. NEURO: The patient is awake but confused. No facial asymmetry. Withdraws from painful stimuli. MUSCULOSKELETAL: There is no tenderness or deformity. There is no limitation range of motion. There is no evidence of acute injury. <TERRY RUTHERFORD S - Last Filed: 05/20/19 18:30> ED Course Vital Signs 05/18/19 05/18/19 05/18/19 17:01 17:15 17:45 Temperature 98.6 F Pulse Rate 97 H 88 Respiratory 18 18 18 Rate Blood Pressure 176/83 Blood Pressure 183/78 [Left] O2 Sat by Pulse 98 100 97 Oximetry 05/18/19 05/19/19 05/19/19 22:20 01:14 02:00 Temperature Pulse Rate 75 82 75 Respiratory 18 12 11 L Rate Blood Pressure 159/79 163/77 Blood Pressure 138/75 [Left] O2 Sat by Pulse 97 100 98 Oximetry <NISHANT DAUGHERTY - Last Filed: 05/19/19 03:03> Vital Signs 05/18/19 17:01 Temperature 98.6 F Pulse Rate 97 H Respiratory 18 Rate Blood Pressure 176/83 O2 Sat by Pulse 98 Oximetry <TERRY RUTHERFORD - Last Filed: 05/20/19 18:30> ED Medical Decision Making - Lab Data Result diagrams: 05/18/19 17:49 05/18/19 17:49 - Medical Decision Making I discussed the patient with Dr Paula Adams for admission <NISHANT DAUGHERTYNehal - Last Filed: 05/19/19 03:03> - Lab Data Result diagrams: 05/19/19 04:07 05/19/19 04:07 - Radiology Data Radiology results: report reviewed RIGHT FOOT 3 VIEWS INDICATION: right foot, 4th toe infection. COMPARISON: No relevant prior imaging study available. FINDINGS: Along the dorsal cortex at the base of the distal phalanx of the fourth toe, there is cortical lucency. There is mild soft tissue swelling in this region. No foreign bodies are seen. Bones are otherwise unremarkable. There are mild osteoarthrosis changes. IMPRESSION: 1. Positioning is suboptimal. There is cortical lucency along the dorsal aspect of the distal phalanx of the fourth toe seen best on the second image. While this could be a small avulsion-type fracture, given the history of infection, this could be due to osteomyelitis. Clinical correlation is needed. CTA abdomen, pelvis and bilateral lower extremities. INDICATION / CLINICAL INFORMATION: Black right toe, foot pain. TECHNIQUE: Axial CT images were obtained after injection of Omnipaque 350, 100 cc IV contrast using CTA protocol. 3 plane MIP / 3D reconstructions were produced. All CT scans at this location are performed using CT dose reduction for ALARA by means of automated exposure control. COMPARISON: None available. FINDINGS: CTA abdomen: The aorta contains atherosclerotic calcification diffusely. High-grade focal stenosis is seen just below the renal arteries for the maximal transverse diameter of the aorta is 4 mm. Mesenteric and renal vessels are patent. Mild stenosis is present origin of the celiac axis and left renal artery. High-grade stenosis is present origin of the RYANNE. The spleen contains a benign-appearing cyst measuring 2.5 cm. Left renal cortical scarring is noted. Probable left adrenal adenoma measuring 2.2 cm. CTA PELVIS: The iliac vessels are tortuous but patent. Status post previous hysterectomy. Sigmoid diverticula are noninflamed. A lipoma at the right gluteal muscles and reactive appearing nodes at the right groin are also noted. CTA right lower extremity: The common femoral artery is patent and gives rise to a patent profunda femoris artery and a patent superficial femoral artery. The popliteal artery occludes just [id number] joint. Collateral vessels are seen extensively throughout the calf. There is reconstitution of the peroneal artery. CTA left lower extremity: The common femoral artery is patent and gives rise to a patent profunda femoris artery and a patent superficial femoral artery. The popliteal artery is patent throughout its course. There is occlusion of the anterior tibial artery proximally. The tibioperoneal trunk is also occluded. Collateral vessels reconstitute the posterior tibial artery and peroneal artery. IMPRESSION: 1. High-grade stenosis of the aorta just below the renal arteries. 2. Mild stenosis origin of the celiac axis and left renal artery. High-grade stenosis origin of the RYANNE. 3. 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 4. Occlusion of the proximal runoff vessels on the left with reconstitution of the posterior tibial and peroneal arteries. - Medical Decision Making This patient presented with a few days of pain and some recent right fourth toe discoloration concerning for gangrene or ischemia. Labs have been unremarkable. X-ray showed concern for osteomyelitis of the toe but it was subtle. A CT angiography of the abdomen and pelvis and lower extremity showed some limits ischemia. Patient was admitted to the hospital for further evaluation and treat ment. In reviewing the chart, the patient was seen by vascular surgery who felt the stenosis and/or occlusion are chronic and did not need immediate revascularization but will continue to follow the patient has a consult for further evaluation and treatment. - Differential Diagnosis osteomyelitis, gangrene, cellulitis <TERRY RUTHERFORD - Last Filed: 05/20/19 18:30> Critical care attestation.: If time is entered above; I have spent that time in minutes in the direct care of this critically ill patient, excluding procedure time. <NISHANT DAUGHERTY - Last Filed: 05/19/19 03:03> Critical Care Time: No Critical care attestation.: If time is entered above; I have spent that time in minutes in the direct care of this critically ill patient, excluding procedure time. <TERRY RUTHERFORD - Last Filed: 05/20/19 18:30> ED Disposition <NISHANT DAUGHERTY - Last Filed: 05/19/19 03:03> Is pt being admited?: Yes <TERRY RUTHERFORD - Last Filed: 05/20/19 18:30> Clinical Impression: Osteomyelitis of fourth toe of right foot Hypertension Qualifiers: Hypertension type: essential hypertension Qualified Code(s): I10 - Essential (primary) hypertension Disposition: -09 OP ADMIT IP TO THIS HOSP Condition: Fair
--- NOTE | 2019-05-18 19:26 | XRay Report ---
RIGHT FOOT 3 VIEWS INDICATION: right foot, 4th toe infection. COMPARISON: No relevant prior imaging study available. FINDINGS: Along the dorsal cortex at the base of the distal phalanx of the fourth toe, there is cortical lucenc y. There is mild soft tissue swelling in this region. No foreign bodies are seen. Bones are otherwise unremarkable. There are mild osteoarthrosis changes. IMPRESSION: 1. Positioning is suboptimal. There is cortical lucency along the dorsal aspect of the distal phalanx of the fourth toe seen best on the second image. While this could be a small avulsion-type fracture, given the history of infection, this could be due to osteomyelitis. Clinical correlation is needed. Signer Name: Dejan Marinelli MD Signed: 05/18/2019 7:22 PM Workstation Name: [id number]
[2019-05-18] MEDS ORDERED: LORazepam 2 MG/ML VIAL IM ONE (19:46)
[2019-05-18] MEDS ORDERED: hydrALAZINE 20 MG/1 ML INJ ONE (19:53)
[2019-05-18] MEDS ORDERED: LORazepam 2 MG/ML VIAL IV ONE (22:05)
[2019-05-18] MEDS ORDERED: ZIPRASIDONE MESYLATE 20 MG VIAL IM ONE (22:44)
[2019-05-18] MEDS ORDERED: WATER FOR INJ Sterile (PF) 10 ML ONE (22:57)
[2019-05-19] MEDS ORDERED: VANCOMYCIN/NS 1 GM/250 ML 1 GM/250 ML BAG IV ONE (00:38)
--- NOTE | 2019-05-19 02:15 | Cat Scan Report ---
CTA abdomen, pelvis and bilateral lower extremities. INDICATION / CLINICAL INFORMATION: Black right toe, foot pain. TECHNIQUE: Axial CT images were obtained after injection of Omnipaque 350, 100 cc IV contrast using CTA protocol . 3 plane MIP / 3D reconstructions were produced. All CT scans at this location are performed using C T dose reduction for ALARA by means of automated exposure control. COMPARISON: None available. FINDINGS: CTA abdomen: The aorta contains atherosclerotic calcification diffusely. High-grade focal stenosis is seen just below the renal arteries for the maximal transverse diameter of the aorta is 4 mm. Mesente becka and renal vessels are patent. Mild stenosis is present origin of the celiac axis and left renal a rtery. High-grade stenosis is present origin of the RYANNE. The spleen contains a benign-appearing cyst measuring 2.5 cm. Left renal cortical scarring is noted. Probable left adrenal adenoma measuring 2.2 cm. CTA PELVIS: The iliac vessels are tortuous but patent. Status post previous hysterectomy. Sigmoid diverticula are noninflamed. A lipoma at the right gluteal muscles and reactive appearing nodes at the right groin are also noted. CTA right lower extremity: The common femoral artery is patent and gives rise to a patent profunda fe tiffany artery and a patent superficial femoral artery. The popliteal artery occludes just [id number] [id number] joint. Collateral vessels are seen extensively throughout the calf. There is reconstitution of the peroneal artery. CTA left lower extremity: The common femoral artery is patent and gives rise to a patent profunda fem keli artery and a patent superficial femoral artery. The popliteal artery is patent throughout its co urse. There is occlusion of the anterior tibial artery proximally. The tibioperoneal trunk is also oc cluded. Collateral vessels reconstitute the posterior tibial artery and peroneal artery. IMPRESSION: 1. High-grade stenosis of the aorta just below the renal arteries. 2. Mild stenosis origin of the celiac axis and left renal artery. High-grade stenosis origin of the I MA. 3. 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 4. Occlusion of the proximal runoff vessels on the left with reconstitution of the posterior tibial a nd peroneal arteries. Signer Name: Tone Lentz MD Signed: 05/19/2019 2:11 AM Workstation Name: [id number]
[2019-05-19] MEDS ORDERED: ONDANSETRON 4 MG/2 ML INJ IV PRN (03:20)
--- NOTE | 2019-05-19 03:31 | History and Physical Report ---
History of Present Illness Date of examination: 05/19/19 History of present illness: Patient is sedated, status post Ativan, unable to reach family, history per chart. 79-year-old woman with a history of dementia was brought to the emergency room for evaluation of a black toe. Review of systems unobtainable PAST MEDICAL HISTORY: Dementia PAST SURGICAL HISTORY: Unknown SOCIAL HISTORY: Unknown FAMILY HISTORY: Unknown Medications and Allergies Allergies Allergy/AdvReac Type Severity Reaction Status Date / Time No Known Allergies Allergy Verified 03/27/19 23:30 Home Medications Medication Instructions Recorded Confirmed Last Taken Type Donepezil [Aricept] 5 mg PO DAILY 03/28/19 03/28/19 Unknown History Losartan [Cozaar] 25 mg PO QDAY 03/28/19 03/28/19 Unknown History cloNIDine-TTS PATCH [Catapres-Tts 0.2 mg TD Tu #7 patch 03/29/19 Unknown Rx 0.2mg Patch] Active Meds: Active Medications Acetaminophen (Tylenol) 650 mg PO Q4H PRN PRN Reason: Pain MILD(1-3)/Fever >100.5/ACOSTA Sodium Chloride (Nacl 0.45% 1000 Ml) 1,000 mls @ 75 mls/hr IV DIRECT TYRON Ondansetron HCl (Zofran) 4 mg IV Q8H PRN PRN Reason: Nausea And Vomiting Sodium Chloride (Sodium Chloride Flush Syringe 10 Ml) 10 ml IV BID TYRON Sodium Chloride (Sodium Chloride Flush Syringe 10 Ml) 10 ml IV PRN PRN PRN Reason: LINE FLUSH Exam - Physical Exam Narrative exam: Gen. appearance: Patient lying in bed, no apparent distress HEENT: Normocephalic, atraumatic, pupils equally round and reactive to light, unable to do extraocular movement, and no sclericterus,. No JVD or thyromegaly or nodule,, no carotid bruit , unable to examine oral cavity Heart: S1, S2, regular rate and rhythm Lungs: Clear bilaterally anteriorly, breathing comfortable Abdomen: Positive bowel sounds,soft, nondistended, no organomegaly Extremity:right 4th toe darkened, no edema cyanosis, clubbing Skin: no rash, dry, warm Neuro sedated - Constitutional Vitals: Temp Pulse Resp BP Pulse Ox 98.6 F 75 11 L 163/77 98 05/18/19 17:01 05/19/19 02:00 05/19/19 02:00 05/19/19 02:00 05/19/19 02:00 Results - Labs CBC & Chem 7: 05/19/19 04:07 05/18/19 17:49 Labs: Abnormal lab results 05/18/19 05/18/19 Range/Units 17:49 17:49 Lymph % (Auto) 10.4 L (13.4-35.0) % Price % (Auto) 9.0 H (0.0-7.3) % Lymph # 0.9 L (1.2-5.4) K/mm3 Seg Neutrophils % 78.0 H (40.0-70.0) % Potassium 3.2 L (3.6-5.0) mmol/L BUN 23 H (7-17) mg/dL Creatinine 0.6 L (0.7-1.2) mg/dL Glucose 133 H (65-100) mg/dL Assessment and Plan lower extremity CTA reviewed Assessment Multvessel Stenosis Peripheral vascular disease Dementia Plan Admit to medicine Consult vascular, case d/w Dr Matos Recommends no heparin drip at this time Start IV fluid, DVT prophalaxis
[2019-05-19 04:19] LABS: Basophils # (Auto) 0.1 K/mm3 (0.0-0.1); Basophils % (Auto) 1.3 % (0.0-1.8); Eosinophils # (Auto) 0.2 K/mm3 (0.0-0.4); Eosinophils % (Auto) 2.3 % (0.0-4.3); Hemoglobin 12.3 gm/dl (10.1-14.3); Lymphocytes # (Auto) 1.8 K/mm3 (1.2-5.4); Lymphocytes % (Auto) 20.3 % (13.4-35.0); Mean Corpuscular HGB Conc 32 % (30-34); Mean Corpuscular Volume 85 fl (79-97); Monocytes # (Auto) 0.8 K/mm3 (0.0-0.8); Monocytes % (Auto) 9.2 % (0.0-7.3); Platelet Count 458 K/mm3 (140-440); Red Blood Count 4.46 M/mm3 (3.65-5.03); Red Cell Distribution Width 14.1 % (13.2-15.2)
[2019-05-19 04:38] LABS: BUN/Creatinine Ratio 26; Blood Urea Nitrogen 13 mg/dL (7-17); Calcium 9.6 mg/dL (8.4-10.2); Hemolysis Index 6
[2019-05-19] MEDS: SODIUM CHLORIDE 0.45% 1000 ML 1,000 ML IV SCH (06:03)
--- NOTE | 2019-05-19 10:59 | Consultation ---
History of Present Illness - Reason for Consult Consult date: 05/19/19 right toe gangrene - History of Present Illness HPI: 79yo female with dementia presents from longterm with right 4th toe discoloration. The patient unable to provide any history 2/2 dementia. Spoke with caregiver at longterm who states she noticed for the past 2 weeks the patient limping but denied pain until yesterday. The patient with complaints this morning. The patient has a family member that makes her medical decisions. 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 to discuss appropriate course continue medical management will continue to follow Medications and Allergies Allergies Allergy/AdvReac Type Severity Reaction Status Date / Time No Known Allergies Allergy Verified 03/27/19 23:30 Home Medications Medication Instructions Recorded Confirmed Last Taken Type Donepezil [Aricept] 5 mg PO DAILY 03/28/19 03/28/19 Unknown History Losartan [Cozaar] 25 mg PO QDAY 03/28/19 03/28/19 Unknown History cloNIDine-TTS PATCH [Catapres-Tts 0.2 mg TD Tu #7 patch 03/29/19 Unknown Rx 0.2mg Patch] Active Meds: Active Medications Acetaminophen (Tylenol) 650 mg PO Q4H PRN PRN Reason: Pain MILD(1-3)/Fever >100.5/ACOSTA Enoxaparin Sodium (Enoxaparin) 30 mg SUB-Q DAILY TYRON Hydralazine HCl (Apresoline) 5 mg IV Q6H PRN PRN Reason: Hypertension Sodium Chloride (Nacl 0.45% 1000 Ml) 1,000 mls @ 75 mls/hr IV DIRECT TYRON Last Admin: 05/19/19 06:03 Dose: 75 mls/hr Documented by: Ondansetron HCl (Zofran) 4 mg IV Q8H PRN PRN Reason: Nausea And Vomiting Sodium Chloride (Sodium Chloride Flush Syringe 10 Ml) 10 ml IV BID TYRON Sodium Chloride (Sodium Chloride Flush Syringe 10 Ml) 10 ml IV PRN PRN PRN Reason: LINE FLUSH Exam - Constitutional Vitals: Temp Pulse Resp BP Pulse Ox 98.3 F 97 H 14 151/86 95 05/19/19 06:05 05/19/19 09:50 05/19/19 09:50 05/19/19 09:50 05/19/19 10:12 Results - Labs CBC & Chem 7: 05/19/19 04:07 05/19/19 04:07 Labs: Abnormal lab results 05/18/19 05/18/19 05/19/19 Range/Units 17:49 17:49 04:07 Plt Count 458 H (140-440) K/mm3 Lymph % (Auto) 10.4 L (13.4-35.0) % [place] % (Auto) 9.0 H 9.2 H (0.0-7.3) % Lymph # 0.9 L (1.2-5.4) K/mm3 Seg Neutrophils % 78.0 H (40.0-70.0) % Potassium 3.2 L (3.6-5.0) mmol/L BUN 23 H (7-17) mg/dL Creatinine 0.6 L (0.7-1.2) mg/dL Glucose 133 H (65-100) mg/dL 05/19/19 Range/Units 04:07 Plt Count (140-440) K/mm3 Lymph % (Auto) (13.4-35.0) % [place] % (Auto) (0.0-7.3) % Lymph # (1.2-5.4) K/mm3 Seg Neutrophils % (40.0-70.0) % Potassium 3.2 L (3.6-5.0) mmol/L BUN (7-17) mg/dL Creatinine 0.5 L (0.7-1.2) mg/dL Glucose 104 H (65-100) mg/dL
--- NOTE | 2019-05-19 15:17 | Event Note ---
Date: 05/19/19 Patient seen and examined noted vascular recommendation wait on Family discussion to make final recommendation
[2019-05-19] MEDS: ENOXAPARIN 30 MG/0.3 ML INJ SUB-Q SCH (15:52)
--- NOTE | 2019-05-20 00:25 | Event Note ---
Date: 05/20/19 spoke with patient Jean-Paulsin and MARCO A who wants us to pursue limb salvage will plan to take patient on Wednesday for right leg revascularization
[2019-05-20] MEDS: LOSARTAN 25 MG TAB PO SCH (11:13)
[2019-05-20] MEDS: DONEPEZIL 5 MG TAB PO SCH (11:13)
[2019-05-20] MEDS: ENOXAPARIN 30 MG/0.3 ML INJ SUB-Q SCH (11:16)
--- NOTE | 2019-05-20 12:05 | Progress Note ---
Assessment and Plan Right foot ischemia due to PVD Peripheral vascular disease Dementia, severe Advance age Severe PCM Hypokalemia HTN, uncontrolled DVT px - Monitor at [facility] - Consulted vascular, case d/w Dr Matos - Recommends no heparin drip at this time - plan for angiogram on Wednesday - supportive care, sitter at bedside - Iv fluid, nutrition consult - replete electrolytes Brief history: 79-year-old woman with a history of dementia was brought to the emergency room for evaluation of a black toe/foot ischemia Subjective Date of service: 05/20/19 Interval history: Patient seen and examined. Medical records and medication list reviewed. No acute event overnight noted by the RN. Patient denies any chest pain or difficulty breathing. Patient is tolerating diet. Patient has sitter at bedside. Objective - Constitutional Vitals: Vital Signs - 12hr 05/20/19 05/20/19 00:27 03:06 Pulse Rate 98 H Respiratory 16 Rate Blood Pressure 150/60 General appearance: Present: no acute distress, cachectic - EENT Eyes: PERRL, EOM intact ENT: hearing intact, clear oral mucosa Ears: bilateral: normal - Neck Neck: supple, normal ROM - Respiratory Respiratory effort: normal Respiratory: bilateral: CTA - Cardiovascular Rhythm: regular Heart Sounds: Present: S1 & S2. Absent: gallop, rub Extremities: pulses intact, No edema, Full ROM Extremity abnormal: cyanosis (right foot toe with back discoloration of the 3rd one), erythema, pulses diminished, tenderness - Gastrointestinal General gastrointestinal: Present: soft, non-tender, non-distended, normal bowel sounds - Genitourinary Female genitourinary: normal - Integumentary Integumentary: clear, warm, dry - Musculoskeletal Musculoskeletal: 1, strength equal bilaterally - Neurologic Neurologic: moves all extremities - Psychiatric Psychiatric: memory intact, appropriate mood/affect, intact judgment & insight - Labs CBC & Chem 7: 05/19/19 04:07 05/19/19 04:07
[2019-05-21] MEDS: hydrALAZINE 20 MG/1 ML INJ IV PRN ×2 (01:02→09:21)
[2019-05-21] MEDS: ACETAMINOPHEN 325 MG TAB PO PRN ×2 (01:04→09:29)
[2019-05-21] MEDS: LOSARTAN 25 MG TAB PO SCH (09:22)
[2019-05-21] MEDS: ENOXAPARIN 30 MG/0.3 ML INJ SUB-Q SCH (09:22)
[2019-05-21] MEDS: DONEPEZIL 5 MG TAB PO SCH (09:22)
--- NOTE | 2019-05-21 10:58 | Progress Note ---
Subjective Date of service: 05/21/19 Interval history: patient with right lower extremity critical limb ischemia patient with no complaints plan for right leg revascularization tomorrow NPO p MN Objective - Constitutional Vitals: Vital Signs - 12hr 05/21/19 05/21/19 03:10 08:14 Temperature 98.7 F Pulse Rate 87 Respiratory 18 17 Rate Blood Pressure 170/73 200/87 O2 Sat by Pulse 100 Oximetry - Labs CBC & Chem 7: 05/19/19 04:07 05/19/19 04:07 Medications & Allergies - Medications Allergies/Adverse Reactions: Allergies No Known Allergies Allergy (Verified 03/27/19 23:30) Home Medications: Home Medications Medication Instructions Recorded Confirmed Last Taken Type Donepezil [Aricept] 5 mg PO DAILY 03/28/19 05/19/19 Unknown History Losartan [Cozaar] 25 mg PO QDAY 03/28/19 05/19/19 Unknown History cloNIDine-TTS PATCH [Catapres-Tts 0.2 mg TD Tu #7 patch 03/29/19 05/19/19 Unknown Rx 0.2mg Patch] Active Medications: Generic Name Dose Route Start Last Admin Trade Name Freq PRN Reason Stop Dose Admin Acetaminophen 650 mg 05/19/19 03:20 05/21/19 09:29 Tylenol PO 650 mg Q4H PRN Administration Pain MILD(1-3)/Fever >100.5/ACOSTA Clonidine HCl 0.2 mg 05/23/19 14:39 Catapres-Tts Patch TD Tu TYRON Donepezil HCl 5 mg 05/20/19 10:00 05/21/19 09:22 Aricept PO 5 mg DAILY TYRON Administration Enoxaparin Sodium 30 mg 05/19/19 10:00 05/21/19 09:22 Enoxaparin SUB-Q Not Given DAILY TYRON Hydralazine HCl 5 mg 05/19/19 04:26 05/21/19 09:21 Apresoline IV 5 mg Q6H PRN Administration Hypertension Sodium Chloride 1,000 mls @ 75 mls/hr 05/19/19 04:00 05/19/19 06:03 Nacl 0.45% 1000 Ml IV 75 mls/hr DIRECT TYRON Administration Losartan Potassium 25 mg 05/20/19 10:00 05/21/19 09:22 Cozaar PO 25 mg QDAY TYRON Administration Ondansetron HCl 4 mg 05/19/19 03:20 Zofran IV Q8H PRN Nausea And Vomiting Sodium Chloride 10 ml 05/19/19 10:00 05/21/19 09:21 Sodium Chloride Flush Syringe 10 Ml IV 10 ml BID TYRON Administration Sodium Chloride 10 ml 05/19/19 03:20 Sodium Chloride Flush Syringe 10 Ml IV PRN PRN LINE FLUSH
--- NOTE | 2019-05-21 13:42 | Progress Note ---
Assessment and Plan Right foot ischemia due to PVD Peripheral vascular disease Dementia, severe Advance age Severe PCM Hypokalemia HTN, uncontrolled DVT px - Monitor at [facility] - Consulted vascular, case d/w Dr Matos - Recommends no heparin drip at this time - plan for angiogram on Wednesday - supportive care, sitter at bedside - Iv fluid, nutrition consult - replete electrolytes as needed, Brief history: 79-year-old woman with a history of dementia was brought to the emergency room for evaluation of a black toe/foot ischemia Subjective Date of service: 05/21/19 Interval history: Patient seen and examined. Medical records and medication list reviewed. No acute event overnight noted by the RN. Patient denies any chest pain or difficulty breathing. Patient is tolerating diet. Patient has sitter at bedside. Objective - Exam Narrative Exam: General appearance: Present: no acute distress, cachectic - EENT Eyes: PERRL, EOM intact ENT: hearing intact, clear oral mucosa Ears: bilateral: normal - Neck Neck: supple, normal ROM - Respiratory Respiratory effort: normal Respiratory: bilateral: CTA - Cardiovascular Rhythm: regular Heart Sounds: Present: S1 & S2. Absent: gallop, rub Extremities: pulses intact, No edema, Full ROM Extremity abnormal: cyanosis (right foot toe with back discoloration of the 3rd one), erythema, pulses diminished, tenderness - Gastrointestinal General gastrointestinal: Present: soft, non-tender, non-distended, normal bowel sounds - Genitourinary Female genitourinary: normal - Integumentary Integumentary: clear, warm, dry - Musculoskeletal Musculoskeletal: 1, strength equal bilaterally - Neurologic Neurologic: moves all extremities - Psychiatric Psychiatric: no memory intact, no appropriate mood/affect, no intact judgment & insight - Constitutional Vitals: Vital Signs - 12hr 05/21/19 05/21/19 03:10 08:14 Temperature 98.7 F Pulse Rate 87 Respiratory 18 17 Rate Blood Pressure 170/73 200/87 O2 Sat by Pulse 100 Oximetry - Labs CBC & Chem 7: 05/19/19 04:07 05/19/19 04:07
[2019-05-22] MEDS ORDERED: HALOPERIDOL LACTATE 5 MG/1 ML INJ IM PRN (09:09)
[2019-05-22] MEDS: ENOXAPARIN 30 MG/0.3 ML INJ SUB-Q SCH (10:48)
[2019-05-22] MEDS: LOSARTAN 25 MG TAB PO SCH (10:48)
[2019-05-22] MEDS: DONEPEZIL 5 MG TAB PO SCH (10:48)
[2019-05-22] MEDS: hydrALAZINE 20 MG/1 ML INJ IV PRN (11:39)
--- NOTE | 2019-05-22 14:04 | Progress Note ---
Assessment and Plan Right foot ischemia due to PVD Peripheral vascular disease Dementia, severe Advance age Severe PCM Hypokalemia HTN, uncontrolled DVT px - Monitor at [facility] - Consulted vascular, case d/w Dr Matos - Recommends no heparin drip at this time - plan for angiogram today, NPO now - supportive care, sitter at bedside - Iv fluid, nutrition consult - replete electrolytes as needed, - Requested medical records from PCP - will follow Brief history: 79-year-old woman with a history of dementia was brought to the emergency room for evaluation of a black toe/foot ischemia Subjective Date of service: 05/22/19 Interval history: Patient seen and examined. Medical records and medication list reviewed. Patient denies any chest pain or difficulty breathing. Patient is tolerating diet. Pulled out her IV line today and was agitated this am Patient has sitter at bedside. Objective - Exam Narrative Exam: General appearance: Present: no acute distress, cachectic - EENT Eyes: PERRL, EOM intact ENT: hearing intact, clear oral mucosa Ears: bilateral: normal - Neck Neck: supple, normal ROM - Respiratory Respiratory effort: normal Respiratory: bilateral: CTA - Cardiovascular Rhythm: regular Heart Sounds: Present: S1 & S2. Absent: gallop, rub Extremities: pulses intact, No edema, Full ROM Extremity abnormal: cyanosis (right foot toe with back discoloration of the 3rd one), erythema, pulses diminished, tenderness - Gastrointestinal General gastrointestinal: Present: soft, non-tender, non-distended, normal bowel sounds - Genitourinary Female genitourinary: normal - Integumentary Integumentary: clear, warm, dry - Musculoskeletal Musculoskeletal: 1, strength equal bilaterally - Neurologic Neurologic: moves all extremities - Psychiatric Psychiatric: no memory intact, no appropriate mood/affect, no intact judgment & insight - Constitutional Vitals: Vital Signs - 12hr 05/22/19 05/22/19 05/22/19 03:51 08:17 10:00 Temperature 97.4 F L 98.3 F Pulse Rate 88 91 H Respiratory 16 20 20 Rate Blood Pressure 189/77 184/76 O2 Sat by Pulse 99 100 100 Oximetry 05/22/19 13:15 Temperature 97.5 F L Pulse Rate 111 H Respiratory 20 Rate Blood Pressure 132/55 O2 Sat by Pulse 100 Oximetry - Labs CBC & Chem 7: 05/19/19 04:07 05/22/19 20:49
[2019-05-22] MEDS ORDERED: HEPARIN 10,000 UNITS/10 ML VIAL ONE (15:06)
[2019-05-22] MEDS ORDERED: HEPARIN/NS 5000 UNIT/500ML 0 ML IR ONE (15:06)
--- NOTE | 2019-05-22 15:33 | Anesthesia Consultation ---
Anesthesia Consult and Med Hx Date of service: 05/22/19 - Airway Anesthetic Teeth Evaluation: Edentulous Mallampati Class: Class III Intubation Access Assessment: Possibly Difficult - Pulmonary Exam CTA: Yes - Cardiac Exam Cardiac Exam: RRR - Pre-Operative Health Status ASA Pre-Surgery Classification: ASA3 Proposed Anesthetic Plan: MAC - Pulmonary Hx Respiratory Symptoms: No - Cardiovascular System Hx Hypertension: Yes - Central Nervous System Hx Psychiatric Problems: Yes (dementia) - Endocrine Hx Renal Disease: No Hx Liver Disease: No Hx Insulin Dependent Diabetes: No Hx Thyroid Disease: No - Hematic Hx Anemia: No - Other Systems Hx Obesity: No - Additional Comments Anesthesia Medical History Comments: Hx obtained from chart review. Anesthesia consent obtained from NOK/POA.
--- NOTE | 2019-05-22 15:34 | Anesthesia Day of Surgery ---
Anesthesia Day of Surgery - Day of Surgery Patient Examined: Yes Patient H&P Reviewed: Yes Patient is NPO: Yes
[2019-05-22] MEDS ORDERED: HEPARIN/NS 5000 UNIT/500ML 1,000 ML IR ONE (15:57)
[2019-05-22] MEDS ORDERED: LIDOCAINE (2%) 20 MG/1 ML VIAL 20 ML MDV INFILTRATI ONE (15:58)
[2019-05-22] MEDS ORDERED: MIDAZOLAM 2 MG/2 ML INJ ONE ×2 (17:54→19:29)
[2019-05-22] MEDS ORDERED: fentaNYL 100 MCG/2 ML INJ ONE (17:54)
[2019-05-22] MEDS ORDERED: PROPOFOL 200 MG/20 ML VIAL IV ONE ×2 (17:55→18:22)
[2019-05-22] MEDS ORDERED: SODIUM CHLORIDE 0.9% 1000 ML 1,000 ML ONE (18:01)
[2019-05-22] MEDS ORDERED: ceFAZolin/Water 2 GM/20 ML 2 GM/20 ML SYRINGE IV ONE ×2 (18:08→18:35)
[2019-05-22] MEDS: LIDOCAINE 1%/EPINEPHRINE 1:100,000 VIAL (20 ML) INFILTRATI ONE ×2 (18:12→18:35)
[2019-05-22] MEDS: HEPARIN 10,000 UNITS/10 ML VIAL ONE ×3 (18:12→18:55)
[2019-05-22] MEDS ORDERED: PROTAMINE SULFATE 50 MG/5 ML INJ ONE (19:40)
--- NOTE | 2019-05-22 19:58 | Post Operative Note ---
Pre-op diagnosis: Right Lower Extremity Critical Limb Ischemia Post-op diagnosis: same Procedure: 1. Diagnostic Aortogram 2. Right Lower Extremity Angiogram with 2nd Order Catheter Cannulation 3. Infra-renal Aorta Angioplasty and Stent Placement with [id number] [place] VBX Stent 4. Perclose of Left Femoral Access Anesthesia: MAC, local Surgeon: CHRIS WALLACE Estimated blood loss: other (10) Pathology: none Condition: stable Disposition: floor
[2019-05-22] MEDS ORDERED: CLOPIDOGREL 300 MG TAB PO ONE (20:01)
[2019-05-22] MEDS ORDERED: SODIUM CHLORIDE 0.9% 1000 ML IV SOLN ONE (20:57)
[2019-05-22] MEDS ORDERED: METOPROLOL TARTRATE 5 MG/5 ML INJ IV ONE (21:00)
[2019-05-22 21:06] LABS: INR 1.04 (0.87-1.13)
[2019-05-22 21:08] LABS: BUN/Creatinine Ratio 26; Blood Urea Nitrogen 13 mg/dL (7-17); Calcium 8.9 mg/dL (8.4-10.2); Hemolysis Index 11
--- NOTE | 2019-05-22 21:21 | Post Anesthesia Evaluation ---
- Post Anesthesia Evaluation Patient Participated: Yes (returned to baseline mentation) Airway Patent: Yes Stable Respiratory Function: Yes Nausea/Vomiting: No Temp > 96.8F: Yes Pain Manageable: Yes Adequeate Hydration: Yes Anesthesia Complications: No
[2019-05-22] MEDS: SODIUM CHLORIDE 0.45% 1000 ML 1,000 ML IV SCH (21:39)
--- NOTE | 2019-05-22 22:02 | Operative Report ---
STAFF SURGEON: Dr. Yehuda Matos. PREOPERATIVE DIAGNOSIS: Right lower extremity critical limb ischemia. POSTOPERATIVE DIAGNOSIS: Right lower extremity critical limb ischemia. PROCEDURE PERFORMED: 1. Diagnostic aortogram. 2. Right lower extremity angiogram, second order catheter cannulation. 3. Infrarenal aorta angioplasty and stent placement with an 11 x 39 mm [place] VBX stent 4. Closure of the left femoral access using Proglide Perclose device. COMPLICATIONS: None. ESTIMATED BLOOD LOSS: Less than 10 mL. ANESTHESIA: Local MAC. ANGIOGRAPHIC FINDINGS: The patient's diagnostic aortogram demonstrated a 90% focal stenosis approximately 1 cm below the renal arteries. The rest of the aorta and iliac system bilaterally were widely patent. The right common femoral, superficial femoral and profunda femoral arteries were all widely patent. P1 and P2 segment of the popliteal artery was widely patent with a complete total occlusion of the P3 segment of the popliteal artery just behind the knee with faint reconstitution of the peroneal artery; although, the tibial runoff was poorly assessed due to contrast washout. INDICATIONS FOR PROCEDURE: This is a 79-year-old female who was noted to have discoloration and gangrenous changes of the right fourth toe as well as was noted to have pain and limping on the right leg. The patient was brought in by her group home to the Emergency Department and the patient had a CTA, which demonstrated findings of a significant aortic stenosis as well as findings of severe infrainguinal disease, it was felt that the patient would benefit from diagnostic angiogram with possible intervention for limb salvage. The patient's POA and cousin were explained of the risks, benefits and alternatives of procedure, expressed understanding and wished to proceed. DESCRIPTION OF PROCEDURE: After appropriate consent was obtained, the patient was brought back to the analytical lab technician, placed on table in supine position. Both groins were prepped and draped in the usual sterile fashion with ChloraPrep. Anesthesia was administered by the anesthesia staff. Appropriate time-out performed indicating correct patient, procedure, and site of procedure. I then began the intervention by obtaining percutaneous access of the left common femoral artery using a micropuncture technique under ultrasound guidance. I was able to obtain access. The needle was exchanged for a micropuncture sheath using Seldinger technique. We then proceeded to exchange the micropuncture sheath for a 6-Cypriot sheath over a stiff J wire. We then proceeded to place 2 Perclose devices in the medial and lateral position, which were placed adequately over a Bentson wire and then this was backfilled with an 8-Cypriot sheath. The patient was then given unfractionated heparin intravenously and ACTs were obtained throughout the remainder of the case for adequate anticoagulation. We then proceeded to place an Omniflush catheter in the infrarenal aorta near the bifurcation. A diagnostic aortogram was performed, which demonstrated the findings noted above. We then proceeded to cannulate the right iliac system with a combination of the Omniflush catheter and Glidewire. Due to the angulation of the aorta, was unable to advance the Omniflush catheter over the bifurcation and so 0.035 TrailBlazer was then used to advance into the distal external iliac artery. Then, an attempt was then made to perform a series of diagnostic imaging of the right lower extremity; however, again due to the severe angulation of the aorta, catheter was kinked at the bifurcation and was unable to replace the wire through the catheter. So, the catheter was then removed and the right lower extremity imaging was performed through the Omniflush catheter from the infrarenal aorta, which demonstrated the findings noted above. With that then proceeded to place the Glidewire back through the Omniflush catheter into the thoracic aorta. An Omniflush catheter was removed. A pigtail catheter was then placed into the suprarenal aorta and hooked to a power injection. A diagnostic aortogram was then performed under magnification, which again demonstrated the findings noted above. The focal stenosis and renal arteries were marked on the screen, Amplatz wire was then placed through the pigtail catheter into the thoracic aorta. The pigtail was removed and then an 11 x 39 Kersey VBX stent was placed just below the left renal artery and the stent was then deployed. The balloon was then taken down and removed. The pigtail catheter was replaced back into the suprarenal aorta. A diagnostic completion aortogram was performed, which demonstrated adequate stent placement in a less than 10% residual stenosis. The pigtail was then removed over a Bentson wire. Well prior to that, then a subsequent runoff was performed of the bilateral iliac and proximal femoral vessels. Again, did not demonstrate any thrombus burden at this level. So then the pigtail catheter was removed over a Bentson wire and then proceeded to place Prolene sutures from the Perclose device again was deployed adequately. The sheath and wire were removed after the suture had been adequately tied down and cut. We then proceeded to close the access site with a 4-0 Monocryl and Dermabond. The patient tolerated the procedure well. There was a nice palpable pulse in the left femoral artery. She emerged from the conscious sedation and was sent to recovery after appropriate dressing was placed. JOB# [id number] VCN/BERNICE ELLIOTT
[2019-05-22] MEDS: ACETAMINOPHEN 325 MG TAB PO PRN (23:39)
[2019-05-23] MEDS ORDERED: POTASSIUM CHLORIDE ER 20 MEQ TAB PO ONE ×2 (06:04→14:00)
[2019-05-23] MEDS: CLOPIDOGREL 75 MG TAB PO SCH (09:21)
[2019-05-23] MEDS: ASPIRIN EC 81 MG TAB PO SCH (09:21)
[2019-05-23] MEDS: DONEPEZIL 5 MG TAB PO SCH (09:21)
[2019-05-23] MEDS: ENOXAPARIN 30 MG/0.3 ML INJ SUB-Q SCH (09:21)
[2019-05-23] MEDS: LOSARTAN 25 MG TAB PO SCH (09:27)
[2019-05-23] MEDS ORDERED: POTASSIUM CHLORIDE 20 MEQ PACKET FEEDTUBE ONE (10:00)
--- NOTE | 2019-05-23 11:02 | Progress Note ---
Assessment and Plan POD#1 s/p Left CEA No focal deficit Mild expressive apahsia however this is not new Will remove PATRICK drain D/C A-line increase activity with physical therapy can transfer to telemetry from a vascular surgery standpoint Subjective Date of service: 05/23/19 Interval history: Patient POD#1 s/p Left CEA. No significant events overnight. Complaining of some left neck pain, no additional complaints. Objective - Exam Narrative Exam: Mild Broca's Aphasia - Constitutional Vitals: Vital Signs - 12hr 05/22/19 05/23/19 05/23/19 23:33 00:33 01:49 Temperature 99.9 F H 99.1 F 98.8 F Pulse Rate 86 78 79 Respiratory 20 18 18 Rate Blood Pressure 159/72 156/67 156/63 O2 Sat by Pulse 98 97 99 Oximetry 05/23/19 05/23/19 05/23/19 05:16 06:58 09:23 Temperature 98.8 F 98.7 F Pulse Rate 83 90 105 H Respiratory 18 20 Rate Blood Pressure 144/63 159/71 O2 Sat by Pulse 97 100 100 Oximetry General appearance: Present: no acute distress - Neck Neck: other (incision intact without hematoma, PATRICK with scant amount of serous drainage) - Respiratory Respiratory effort: normal - Cardiovascular Rhythm: regular Extremities: normal temperature - Musculoskeletal Musculoskeletal: strength equal bilaterally - Neurologic Neurologic: moves all extremities - Labs CBC & Chem 7: 05/19/19 04:07 05/22/19 20:49 Labs: Abnormal lab results 05/22/19 Range/Units 20:49 Potassium 3.3 L (3.6-5.0) mmol/L Carbon Dioxide 21 L (22-30) mmol/L Creatinine 0.5 L (0.7-1.2) mg/dL Glucose 110 H (65-100) mg/dL Medications & Allergies - Medications Allergies/Adverse Reactions: Allergies No Known Allergies Allergy (Verified 03/27/19 23:30) Home Medications: Home Medications Medication Instructions Recorded Confirmed Last Taken Type Donepezil [Aricept] 5 mg PO DAILY 03/28/19 05/19/19 Unknown History Losartan [Cozaar] 25 mg PO QDAY 03/28/19 05/19/19 Unknown History cloNIDine-TTS PATCH [Catapres-Tts 0.2 mg TD Tu #7 patch 03/29/19 05/19/19 Unknown Rx 0.2mg Patch] Active Medications: Generic Name Dose Route Start Last Admin Trade Name Freq PRN Reason Stop Dose Admin Acetaminophen 650 mg 05/19/19 03:20 05/22/19 23:39 Tylenol PO 650 mg Q4H PRN Administration Pain MILD(1-3)/Fever >100.5/ACOSTA Aspirin 81 mg 05/23/19 10:00 05/23/19 09:21 Halfprin Ec PO 81 mg QDAY TYRON Administration Clonidine HCl 0.2 mg 05/23/19 14:39 Catapres-Tts Patch TD Tu TYRON Clopidogrel Bisulfate 75 mg 05/23/19 10:00 05/23/19 09:21 Plavix PO 75 mg QDAY TYRON Administration Donepezil HCl 5 mg 05/20/19 10:00 05/23/19 09:21 Aricept PO 5 mg DAILY TYRON Administration Enoxaparin Sodium 30 mg 05/19/19 10:00 05/23/19 09:21 Enoxaparin SUB-Q 30 mg DAILY TYRON Administration Haloperidol Lactate 5 mg 05/22/19 09:09 05/22/19 11:32 Haldol IM 5 mg Q6H PRN Administration Agitation Hydralazine HCl 5 mg 05/19/19 04:26 05/22/19 11:39 Apresoline IV 5 mg Q6H PRN Administration Hypertension Sodium Chloride 1,000 mls @ 75 mls/hr 05/19/19 04:00 05/22/19 21:39 Nacl 0.45% 1000 Ml IV 75 mls/hr DIRECT TYRON Administration Labetalol HCl 10 mg 05/22/19 20:50 05/22/19 20:25 Labetalol IV 10 mg Q10MIN PRN Administration Systollic greater than 170 Losartan Potassium 25 mg 05/20/19 10:00 05/23/19 09:27 Cozaar PO 25 mg QDAY TYRON Administration Ondansetron HCl 4 mg 05/19/19 03:20 Zofran IV Q8H PRN Nausea And Vomiting Potassium Chloride 40 meq 05/23/19 14:00 K-Dur PO 05/23/19 14:01 ONCE ONE Sodium Chloride 10 ml 05/19/19 10:00 05/23/19 01:16 Sodium Chloride Flush Syringe 10 Ml IV 10 ml BID TYRON Administration Sodium Chloride 10 ml 05/19/19 03:20 Sodium Chloride Flush Syringe 10 Ml IV PRN PRN LINE FLUSH
--- NOTE | 2019-05-23 11:07 | Progress Note ---
Assessment and Plan s/p placement of aortic stent graft for right left ischemia right leg well perfused increase activity as tolerated antiplatelet therapy Subjective Date of service: 05/23/19 Principal diagnosis: Right lower extremity critical limb Interval history: s/p placement of Aortic stent graft. Patient states her right leg feels "a little better". No complaints at this time. Objective - Constitutional Vitals: Vital Signs - 12hr 05/22/19 05/23/19 05/23/19 23:33 00:33 01:49 Temperature 99.9 F H 99.1 F 98.8 F Pulse Rate 86 78 79 Respiratory 20 18 18 Rate Blood Pressure 159/72 156/67 156/63 O2 Sat by Pulse 98 97 99 Oximetry 05/23/19 05/23/19 05/23/19 05:16 06:58 09:23 Temperature 98.8 F 98.7 F Pulse Rate 83 90 105 H Respiratory 18 20 Rate Blood Pressure 144/63 159/71 O2 Sat by Pulse 97 100 100 Oximetry General appearance: Present: no acute distress - Respiratory Respiratory effort: normal Extremities: abnormal (left femoral access site without hematoma. Right leg warm, palpable popliteal pulse) - Neurologic Neurologic: moves all extremities, other (right foot drop) - Labs CBC & Chem 7: 05/19/19 04:07 05/22/19 20:49 Labs: Abnormal lab results 05/22/19 Range/Units 20:49 Potassium 3.3 L (3.6-5.0) mmol/L Carbon Dioxide 21 L (22-30) mmol/L Creatinine 0.5 L (0.7-1.2) mg/dL Glucose 110 H (65-100) mg/dL Medications & Allergies - Medications Allergies/Adverse Reactions: Allergies No Known Allergies Allergy (Verified 03/27/19 23:30) Home Medications: Home Medications Medication Instructions Recorded Confirmed Last Taken Type Donepezil [Aricept] 5 mg PO DAILY 03/28/19 05/19/19 Unknown History Losartan [Cozaar] 25 mg PO QDAY 03/28/19 05/19/19 Unknown History cloNIDine-TTS PATCH [Catapres-Tts 0.2 mg TD Tu #7 patch 03/29/19 05/19/19 Unknown Rx 0.2mg Patch] Active Medications: Generic Name Dose Route Start Last Admin Trade Name Freq PRN Reason Stop Dose Admin Acetaminophen 650 mg 05/19/19 03:20 05/22/19 23:39 Tylenol PO 650 mg Q4H PRN Administration Pain MILD(1-3)/Fever >100.5/ACOSTA Aspirin 81 mg 05/23/19 10:00 05/23/19 09:21 Halfprin Ec PO 81 mg QDAY TYRON Administration Clonidine HCl 0.2 mg 05/23/19 14:39 Catapres-Tts Patch TD TYRON Clopidogrel Bisulfate 75 mg 05/23/19 10:00 05/23/19 09:21 Plavix PO 75 mg QDAY TYRON Administration Donepezil HCl 5 mg 05/20/19 10:00 05/23/19 09:21 Aricept PO 5 mg DAILY TYRON Administration Enoxaparin Sodium 30 mg 05/19/19 10:00 05/23/19 09:21 Enoxaparin SUB-Q 30 mg DAILY TYRON Administration Haloperidol Lactate 5 mg 05/22/19 09:09 05/22/19 11:32 Haldol IM 5 mg Q6H PRN Administration Agitation Hydralazine HCl 5 mg 05/19/19 04:26 05/22/19 11:39 Apresoline IV 5 mg Q6H PRN Administration Hypertension Sodium Chloride 1,000 mls @ 75 mls/hr 05/19/19 04:00 05/22/19 21:39 Nacl 0.45% 1000 Ml IV 75 mls/hr DIRECT TYRON Administration Labetalol HCl 10 mg 05/22/19 20:50 05/22/19 20:25 Labetalol IV 10 mg Q10MIN PRN Administration Systollic greater than 170 Losartan Potassium 25 mg 05/20/19 10:00 05/23/19 09:27 Cozaar PO 25 mg QDAY TYRON Administration Ondansetron HCl 4 mg 05/19/19 03:20 Zofran IV Q8H PRN Nausea And Vomiting Potassium Chloride 40 meq 05/23/19 14:00 K-Dur PO 05/23/19 14:01 ONCE ONE Sodium Chloride 10 ml 05/19/19 10:00 05/23/19 01:16 Sodium Chloride Flush Syringe 10 Ml IV 10 ml BID TYRON Administration Sodium Chloride 10 ml 05/19/19 03:20 Sodium Chloride Flush Syringe 10 Ml IV PRN PRN LINE FLUSH
--- NOTE | 2019-05-23 11:36 | Progress Note ---
Assessment and Plan Assessment and plan: s/p placement of aortic stent graft for right left ischemia right leg well perfused Right foot ischemia due to PVD Peripheral vascular disease Dementia, severe Advance age Severe PCM Hypokalemia HTN, uncontrolled DVT px - Monitor at [facility] unit - Consulted vascular Surg - s/p placement of aortic stent graft for right left ischemia right leg well perfused - supportive care, sitter at bedside - Iv fluid, nutrition consult - replete Potassium and repeat in am History Interval history: right lower ext ischemia s/p vascular procedure. Hospitalist Physical - Physical exam Narrative exam: Gen: Not in acute distress, lying in bed HEENT: Normocephalic, atraumatic Neck: supple, no JVD Heart: S1 and S2 reg, no murmurs, rubs or gallop Lungs: Clear to auscultation bilaterally, Abd: soft, non tender, non distended, normal BS, Ext: No edema, no clubbing, discoloration toe right foot Neuro: Awake, alert, moves all ext - Constitutional Vitals: Temp Pulse Resp BP Pulse Ox 98.7 F 105 H 18 159/71 100 05/23/19 06:58 05/23/19 09:23 05/23/19 10:00 05/23/19 06:58 05/23/19 09:23 General appearance: Present: no acute distress Results - Labs CBC & Chem 7: 05/19/19 04:07 05/22/19 20:49 Labs: Laboratory Last Values WBC 8.9 K/mm3 (4.5-11.0) 05/19/19 04:07 RBC 4.46 M/mm3 (3.65-5.03) 05/19/19 04:07 Hgb 12.3 gm/dl (10.1-14.3) 05/19/19 04:07 Hct 38.0 % (30.3-42.9) 05/19/19 04:07 MCV 85 fl (79-97) 05/19/19 04:07 MCH 28 pg (28-32) 05/19/19 04:07 MCHC 32 % (30-34) 05/19/19 04:07 RDW 14.1 % (13.2-15.2) 05/19/19 04:07 Plt Count 458 K/mm3 (140-440) H 05/19/19 04:07 Lymph % (Auto) 20.3 % (13.4-35.0) 05/19/19 04:07 [place] % (Auto) 9.2 % (0.0-7.3) H 05/19/19 04:07 Eos % (Auto) 2.3 % (0.0-4.3) 05/19/19 04:07 Baso % (Auto) 1.3 % (0.0-1.8) 05/19/19 04:07 Lymph # 1.8 K/mm3 (1.2-5.4) 05/19/19 04:07 [place] # 0.8 K/mm3 (0.0-0.8) 05/19/19 04:07 Eos # 0.2 K/mm3 (0.0-0.4) 05/19/19 04:07 Baso # 0.1 K/mm3 (0.0-0.1) 05/19/19 04:07 Seg Neutrophils % 66.9 % (40.0-70.0) 05/19/19 04:07 Seg Neutrophils # 6.0 K/mm3 (1.8-7.7) 05/19/19 04:07 PT 13.5 Sec. (12.2-14.9) 05/22/19 20:49 INR 1.04 (0.87-1.13) 05/22/19 20:49 Sodium 142 mmol/L (137-145) 05/22/19 20:49 Potassium 3.3 mmol/L (3.6-5.0) L 05/22/19 20:49 Chloride 104.2 mmol/L (98-107) 05/22/19 20:49 Carbon Dioxide 21 mmol/L (22-30) L 05/22/19 20:49 Anion Gap 20 mmol/L 05/22/19 20:49 BUN 13 mg/dL (7-17) 05/22/19 20:49 Creatinine 0.5 mg/dL (0.7-1.2) L 05/22/19 20:49 Estimated GFR > 60 ml/min 05/22/19 20:49 BUN/Creatinine Ratio 26 % 05/22/19 20:49 Glucose 110 mg/dL (65-100) H 05/22/19 20:49 Lactic Acid 1.10 mmol/L (0.7-2.0) 05/18/19 17:49 Calcium 8.9 mg/dL (8.4-10.2) 05/22/19 20:49 Active Medications - Current Medications Current Medications: Generic Name Dose Route Start Last Admin Trade Name Freq PRN Reason Stop Dose Admin Acetaminophen 650 mg 05/19/19 03:20 05/22/19 23:39 Tylenol PO 650 mg Q4H PRN Administration Pain MILD(1-3)/Fever >100.5/ACOSTA Aspirin 81 mg 05/23/19 10:00 05/23/19 09:21 Halfprin Ec PO 81 mg QDAY TYRON Administration Clonidine HCl 0.2 mg 05/23/19 14:39 Catapres-Tts Patch TD TYRON Clopidogrel Bisulfate 75 mg 05/23/19 10:00 05/23/19 09:21 Plavix PO 75 mg QDAY TYRON Administration Donepezil HCl 5 mg 05/20/19 10:00 05/23/19 09:21 Aricept PO 5 mg DAILY TYRON Administration Enoxaparin Sodium 30 mg 05/19/19 10:00 05/23/19 09:21 Enoxaparin SUB-Q 30 mg DAILY TYRON Administration Haloperidol Lactate 5 mg 05/22/19 09:09 05/22/19 11:32 Haldol IM 5 mg Q6H PRN Administration Agitation Hydralazine HCl 5 mg 05/19/19 04:26 05/22/19 11:39 Apresoline IV 5 mg Q6H PRN Administration Hypertension Sodium Chloride 1,000 mls @ 75 mls/hr 05/19/19 04:00 05/22/19 21:39 Nacl 0.45% 1000 Ml IV 75 mls/hr DIRECT TYRON Administration Labetalol HCl 10 mg 05/22/19 20:50 05/22/19 20:25 Labetalol IV 10 mg Q10MIN PRN Administration Systollic greater than 170 Losartan Potassium 25 mg 05/20/19 10:00 05/23/19 09:27 Cozaar PO 25 mg QDAY TYRON Administration Ondansetron HCl 4 mg 05/19/19 03:20 Zofran IV Q8H PRN Nausea And Vomiting Potassium Chloride 40 meq 05/23/19 14:00 K-Dur PO 05/23/19 14:01 ONCE ONE Sodium Chloride 10 ml 05/19/19 10:00 05/23/19 01:16 Sodium Chloride Flush Syringe 10 Ml IV 10 ml BID TYRON Administration Sodium Chloride 10 ml 05/19/19 03:20 Sodium Chloride Flush Syringe 10 Ml IV PRN PRN LINE FLUSH
[2019-05-23] MEDS ORDERED: cloNIDine TTS 0.2 MG/24 HR PATCH TD SCH (14:39)
[2019-05-23] MEDS: hydrALAZINE 20 MG/1 ML INJ IV PRN (18:49)
[2019-05-24] MEDS: hydrALAZINE 20 MG/1 ML INJ IV PRN (00:40)
[2019-05-24 06:11] LABS: BUN/Creatinine Ratio 14; Blood Urea Nitrogen 7 mg/dL (7-17); Calcium 9.2 mg/dL (8.4-10.2); Hemolysis Index 2
[2019-05-24] MEDS ORDERED: MAGNESIUM SULFATE 3 GM in SODIUM CHLORIDE 0.9% 100 ML IV ONE (08:30)
[2019-05-24] MEDS: LOSARTAN 25 MG TAB PO SCH (10:02)
[2019-05-24] MEDS: ASPIRIN EC 81 MG TAB PO SCH (10:02)
[2019-05-24] MEDS: DONEPEZIL 5 MG TAB PO SCH (10:02)
[2019-05-24] MEDS: CLOPIDOGREL 75 MG TAB PO SCH (10:02)
[2019-05-24] MEDS: ENOXAPARIN 30 MG/0.3 ML INJ SUB-Q SCH (10:04)
[2019-05-24 13:47] VITALS: BP 139/57
--- NOTE | 2019-05-24 13:57 | Discharge Summary ---
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 She was seen and evaluated in Ed and admitted. patient was seen by vascular surg. s/p placement of aortic stent graft for right left ischemia right leg well perfused Right foot ischemia due to PVD Peripheral vascular disease Dementia, severe Advance age Severe PCM Hypokalemia, replaced Hypertension Total time spent on discharge, 34 mins Disposition: - TO HOME OR SELFCARE - Discharge Diagnoses (1) Gangrene of toe of right foot Status: Acute (2) Hypertension Status: Acute Qualifiers: Hypertension type: essential hypertension Qualified Code(s): I10 - Essenti al (primary) hypertension (3) PVD (peripheral vascular disease) Status: Acute (4) Limb ischemia Status: Acute Core Measure Documentation - Palliative Care Palliative Care/ Comfort Measures: Not Applicable - Core Measures Any of the following diagnoses?: none Exam - Constitutional Vitals: Temp Pulse Resp BP Pulse Ox 98.4 F 111 H 18 139/57 98 05/24/19 13:37 05/24/19 13:37 05/24/19 13:37 05/24/19 13:37 05/24/19 13:37 Plan Activity: advance as tolerated Diet: low fat, low cholesterol, low salt Plan of Treatment: 1.Follow up with PCP in 1 week 2.Follow up with Dr. Yehuda Wallace, vasc Surg in 1 week Follow up with: PRIMARY CARE, [Primary Care Provider] - 3-5 Days Prescriptions: Aspirin EC [Halfprin EC] 81 mg PO QDAY #30 tablet Clopidogrel [Plavix] 75 mg PO QDAY #30 tablet
== END 2019-05-24 20:00 | disposition home or self-care (01) | DRG 252 ==
LOC: ED 16:50 → 4A 05-19 06:06 → 2B-ACE 05-19 16:40
PROVIDERS: ADMIT Internal Medicine; ATTEND Internal Medicine
PROC: 04793DZ Dilation of Right Renal Artery with Intraluminal Device, Percutaneous Approach (ICD-10-PCS; principal; 2019-05-22)
PROC: B41D1ZZ Fluoroscopy of Aorta and Bilateral Lower Extremity Arteries using Low Osmolar Contrast (ICD-10-PCS; 2019-05-22)
PROC: B4181ZZ Fluoroscopy of Bilateral Renal Arteries using Low Osmolar Contrast (ICD-10-PCS; 2019-05-22)
DX: I73.9 Peripheral vascular disease, unspecified (principal); E43 Unspecified severe protein-calorie malnutrition; F03.90 Unspecified dementia, unspecified severity, without behavioral disturbance, psychotic disturbance, mood disturbance, and anxiety; I10 Essential (primary) hypertension; E87.6 Hypokalemia; I99.8 Other disorder of circulatory system; I70.92 Chronic total occlusion of artery of the extremities; I35.0 Nonrheumatic aortic (valve) stenosis; Z68.32 Body mass index [BMI] 32.0-32.9, adult
CPT/HCPCS: 36415; 37236; 75625; 75710; 76937; 80048; 82140; 83735; 85025; 85347; 85610; 96365; 96372; 96375; G0378; C1725; C1760; C1769; C1874; C1887; C1894; J0360; J0690; J1630; J1644; J1650; J2060; J2250; J2704; J2720; J3010; J3370; J3475; J3486; J7030; Q9967

== ENCOUNTER 2019-06-08 10:51 | Emergency (ER) | payer MEDICARE ==
--- NOTE | 2019-06-08 12:22 | Emergency Department Report ---
ED Extremity Problem HPI - General Chief complaint: Extremity Problem,Nontraumatic Stated complaint: TOE PAIN/HYPERTENSION/DEMENTIA Time Seen by Provider: 06/08/19 11:04 Source: patient, EMS Mode of arrival: Stretcher Limitations: Other (dementia) - History of Present Illness Initial comments: ER nurse Nader reports patient sent to the ER for skin discoloration to the toe. Patient denies pain or symptoms at this time. Severity scale (0 -10): 0 - Related Data Home Medications Medication Instructions Recorded Confirmed Last Taken Donepezil [Aricept] 5 mg PO DAILY 03/28/19 05/19/19 Unknown Losartan [Cozaar] 25 mg PO QDAY 03/28/19 05/19/19 Unknown Previous Rx's Medication Instructions Recorded Last Taken Type cloNIDine-TTS PATCH [Catapres-Tts 0.2 mg TD Tu #7 patch 03/29/19 Unknown Rx 0.2mg Patch] Aspirin EC [Halfprin EC] 81 mg PO QDAY #30 tablet 05/24/19 Unknown Rx Clopidogrel [Plavix] 75 mg PO QDAY #30 tablet 05/24/19 Unknown Rx Allergies Allergy/AdvReac Type Severity Reaction Status Date / Time No Known Allergies Allergy Verified 03/27/19 23:30 ED Review of Systems ROS: Stated complaint: TOE PAIN/HYPERTENSION/DEMENTIA Other details as noted in HPI Comment: Unobtainable due to pts medical conditions ED Past Medical Hx - Past Medical History Hx Hypertension: Yes Hx Liver Disease: No Hx Renal Disease: No Additional medical history: dementia - Social History Smoking Status: Never Smoker Substance Use Type: None - Medications Home Medications: Home Medications Medication Instructions Recorded Confirmed Last Taken Type Donepezil [Aricept] 5 mg PO DAILY 03/28/19 05/19/19 Unknown History Losartan [Cozaar] 25 mg PO QDAY 03/28/19 05/19/19 Unknown History cloNIDine-TTS PATCH [Catapres-Tts 0.2 mg TD Tu #7 patch 03/29/19 05/19/19 Unknown Rx 0.2mg Patch] Aspirin EC [Halfprin EC] 81 mg PO QDAY #30 tablet 05/24/19 Unknown Rx Clopidogrel [Plavix] 75 mg PO QDAY #30 tablet 05/24/19 Unknown Rx ED Physical Exam - General Limitations: Other - Other Other exam information: GENERAL: Patient in no acute distress HEAD: Normocephalic, atraumatic NOSE: No tenderness, discharge, sinus tenderness MOUTH: No erythema, bleeding, exudate HEART: Regular rate and rhythm, no murmur, S1-S2 are auscultated, no edema, pulses are symmetric LUNGS: No respiratory distress. Bilateral breath sounds, No tachypnea, No retractions, No wheezing, rales, rhonchi ABDOMEN: Normal bowel sounds, abdomen soft, no tenderness, no rebound, no guarding, no distention, no masses, no CVA tenderness MUSCULOSKELETAL: Normal joint range of motion, no redness, no swelling, no tenderness NEUROLOGIC: Alert and following commands, Cranial nerves intact, normal sensation, normal strength, no cerebellar deficit SKIN: Skin is warm and dry, Right 4th toe plantar surface dry gangrene. ED Course Vital Signs 06/08/19 06/08/19 06/08/19 11:12 11:16 11:30 Temperature Pulse Rate 87 82 Respiratory 15 19 Rate Blood Pressure 178/75 157/71 O2 Sat by Pulse 98 97 97 Oximetry 06/08/19 06/08/19 06/08/19 11:35 11:37 12:00 Temperature 98.3 F Pulse Rate 74 Respiratory 19 13 Rate Blood Pressure 151/66 O2 Sat by Pulse 97 100 Oximetry 06/08/19 06/08/19 06/08/19 12:30 13:00 13:30 Temperature Pulse Rate 78 96 H 101 H Respiratory 16 16 15 Rate Blood Pressure 149/63 141/75 146/88 O2 Sat by Pulse 100 100 99 Oximetry ED Medical Decision Making - Medical Decision Making Patient comfortable. Plan discharge with outpatient follow up. Return if any worsening. Critical care attestation.: If time is entered above; I have spent that time in minutes in the direct care of this critically ill patient, excluding procedure time. ED Disposition Clinical Impression: Dry gangrene, Gangrene of toe of right foot Disposition: - TO HOME OR SELFCARE Is pt being admited?: No Condition: Stable Instructions: Osteomyelitis (ED) Additional Instructions: Dry Gangrene Right Fourth Toe Referrals: PRIMARY CARE, [Referring] - 2-3 Days DOUGLAS LOZANO MD [Staff Physician] - 2-3 Days Time of Disposition: 12:24
[2019-06-08 13:51] VITALS: BP 146/88
== END 2019-06-08 17:30 | disposition home or self-care (01) ==
LOC: ED 10:51
DX: I96 Gangrene, not elsewhere classified (principal); I10 Essential (primary) hypertension; F03.90 Unspecified dementia, unspecified severity, without behavioral disturbance, psychotic disturbance, mood disturbance, and anxiety; Z79.899 Other long term (current) drug therapy